=== PATIENT | female | born 1935 | race Caucasian/White ===

== ENCOUNTER 2023-01-11 13:13 | Inpatient (IN) | payer BC, MEDICARE ==
[2023-01-11] VITALS (15 sets, daily range): BP systolic 92–158; BP diastolic 53–88
[~2023-01-11] VITALS: Ht 172.7 cm; Wt 53.5 kg
[~2023-01-11 13:13] MED LIST: DONE5TAB34 PO; ESCI10TA PO; OLME20TA13 PO; PRAV40TA3 PO
--- NOTE | 2023-01-11 13:20 | NUR ---
CALLED [phone] STEPHAN
--- NOTE | 2023-01-11 13:24 | NUR ---
TO ER BED 8. [id number] FROM [facility] FOR CHOKING ON BURGER APPROXIMATELY 10 MINS GRINDER WATCH PARTS. PT WAS SATTING AT HIGH 70 LOW 80S ON ROOM AIR. NONREBREATHER 15L APPLIED BY EMS SATTING MID 90S. STRIDOR HEARD UPON AUSCULTATION. PT IS IN RESPIRATORY DISTRESS. ATTACHED TO MONITOR. DR AQUINO AT BEDSIDE.
--- NOTE | 2023-01-11 13:25 | NUR ---
CALLED DR. COTTRELL [phone] LEFT VM
--- NOTE | 2023-01-11 13:28 | NUR ---
DEYVI ADMIN. [phone] [facility]
[2023-01-11] MEDS ORDERED: ETOMIDATE 2 MG/ML VIAL IV ONE ×2 (13:30→20:25)
[2023-01-11] MEDS ORDERED: SUCCINYLCHOLINE CHLORIDE 20 MG/ML VIAL IV ONE ×2 (13:30→20:25)
[2023-01-11] MEDS ORDERED: IV NS 0.9% 1,000 ML IV ONE (13:30)
[2023-01-11] MEDS ORDERED: KETAMINE HCL(200MG/20ML) 10 MG/ML VIAL IV ONE (13:30)
--- NOTE | 2023-01-11 13:38 | NUR ---
INTUBATION STARTED AT 1334. INITIAL VITALS: HR 162; O2 97% ON 15L NR; RR 29; BP 173/79 20MG ETOMINDATE GIVEN AT 1334 100MG SUCCINYLCHOLINE GIVEN AT 1335 IN AT 1338 8.0; 21 AT THE LIP POST VITALS: HR 156; O2 98% MECH VENT; RR 24; BP 146/103
[2023-01-11] MEDS ORDERED: PROPOFOL 100 ML ONE (13:40)
--- NOTE | 2023-01-11 13:40 | NUR ---
VENT SETTINGS MODE; A/C VC FIO2; 100 TIDAL VOLUME: 475 RATE: 12 I:E 1:2 PEEP: 5 PMAX: 65
--- NOTE | 2023-01-11 13:47 | NUR ---
x ray at bedside
--- NOTE | 2023-01-11 13:54 | NUR ---
RUTH COLLECTED AND SENT
[2023-01-11] MEDS ORDERED: PIPERACILLIN /TAZOBACTAM 3.375 G in IV D5W 50 ML IV ONE (14:00)
[2023-01-11] MEDS ORDERED: PROPOFOL 100 ML IV PRN (14:00)
--- NOTE | 2023-01-11 14:00 | NUR ---
DR GARG AT BEDSIDE FOR EVAL
--- NOTE | 2023-01-11 14:10 | NUR ---
MOVE SHEET SUBMITTED.
[2023-01-11 14:11] LABS: BASOPHILS # (AUTO) 0.1 K/uL (0.0-0.2); BASOPHILS % (AUTO) 0.5 % (0.0-2.0); HEMATOCRIT 38 % (33-45); HEMOGLOBIN 12.6 g/dL (11.5-14.8); LYMPHOCYTES % (AUTO) 31.9 % (20.0-44.0); MEAN CORPUSCULAR HGB CONC 33 g/dl (31.0-36.0); MEAN CORPUSCULAR VOLUME 94 fL (82-100); MONOCYTES # (AUTO) 1.1 K/uL (0.1-1.30); NEUTROPHILS # (AUTO) 6.6 K/uL (1.8-8.9); NEUTROPHILS % (AUTO) 52.6 % (43.0-81.0); PLATELET COUNT (AUTO) 348 K/uL (150-450); RED BLOOD CELL COUNT(AUTO) 4.08 MIL/uL (4.0-5.2); WHITE BLOOD COUNT (AUTO) 12.6 K/uL (4.3-11.0)
[2023-01-11 14:25] LABS: ALANINE AMINOTRANSFERASE 25 U/L (12-78); ALBUMIN 3.7 g/dL (3.4-5.0); ALKALINE PHOSPHATASE 82 U/L (46-116); ASPARTATE AMINOTRANSFERASE 23 U/L (15-37); BILIRUBIN,DIRECT 0.1 mg/dL (0.0-0.2); BILIRUBIN,TOTAL 0.4 mg/dL (0.2-1.0); CARBON DIOXIDE 26 mmol/L (21-32); CHLORIDE 106 mmol/L (98-107); CREATININE 0.8 mg/dL (0.6-1.3); GLUCOSE 211 mg/dL (74-106); POTASSIUM 3.5 mmol/L (3.5-5.1); SODIUM SERUM 140 mmol/L (136-145); TOTAL PROTEIN, SERUM 7.1 g/dL (6.4-8.2); UREA NITROGEN, BLOOD 18 mg/dL (7-18)
--- NOTE | 2023-01-11 14:28 | NUR ---
[facility] CALLED [employer] PROFESSOR PAGED.
--- NOTE | 2023-01-11 14:30 | NUR ---
SURJIT (SON/POA) NOTIFIED OF HIS MOTHER'S CONDITON AND THAT SHE HAS BEEN INTUBATED.
--- NOTE | 2023-01-11 14:39 | NUR ---
GOT BED 252 ADMITTING INFORMED.
--- NOTE | 2023-01-11 14:59 | NUR ---
REPORT GIVEN TO JAIRO FOR GUILLAUME
--- NOTE | 2023-01-11 15:05 | NUR ---
16FR RAMRIEZ CATHETER IN PLACE.
--- NOTE | 2023-01-11 15:07 | NUR ---
ADMITTING IONA VIRK AT BEDSIDE FOR EVAL
--- NOTE | 2023-01-11 15:45 | NUR ---
RN NOTES RECEIVED PT IN ROOM 252 FROM ET, PT IS INTUBATED AND SEDATED, TOLERATING VENT SETTING WELL, ON DIPRIVAN AT 40 MCG/KG/MIN, ON TELE SR AND A.LAINE RVR AT TIMES , RAMIREZ DRANING TO GRAVITY, SMALL WOUNDS NOTED ALL OVER THE BODY, MD NOTIFIED , WOUND CONSULT ORDERED, IV SITE CDI, SR UP x3, CALL LIGHT WITHIN EASY REACH, BED LOCKED AND IN LOWEST POSITION, CONTINUE TO MONITOR
--- NOTE | 2023-01-11 15:48 | NUR ---
PT TRASNFERRED TO ICU WITH ACLS PROTOCOLS IN PLACE ACOMPANIED BY RT
--- NOTE | 2023-01-11 15:59 | NUR ---
RT NOTE PT TRANSFERRED FROM BED 8 ER TO ICU 252. VENT PLUGGED INTO RED OUTLET , ETT SECURED, ALARMS ARE ON AND AUDIBLE, AMBU-BAG BY BEDSIDE. PT HAS SAME VENT SETTINGS PRESCRIBED BY DOCTOR. PT SHOWING BILATERAL CHEST RISE. PT IS CURRENTLY STABLE WILL CONTINUE TO MONITOR FOR ANY CHANGES.
[2023-01-11] MEDS ORDERED: CEFEPIME 1 GM in IV D5W 50 ML IV SCH (16:00)
[2023-01-11] MEDS ORDERED: NOREPINEPHRINE 8 MG in IV NS 0.9% 250 ML IV PRN (16:00)
[2023-01-11] MEDS ORDERED: ONDANSETRON HCL/PF 4 MG/2 ML VIAL IVP PRN (16:00)
[2023-01-11 16:49] LABS: ABG BASE EXCESS -0.1 mmol/L; ABG OXYGEN SATURATION 99.6 % (92.0-98.5); ABG PCO2 30.1 mmHg (35.0-45.0); ABG PH 7.487 (7.350-7.450); ABG PO2 404.7 mmHg (75.0-100.0); AaDO2 278.2 mmHg; COHb 0.3 % (0.5-1.5); MetHb 0.4 % (0.0-1.5); O2Hb 98.9 % (94.0-97.0); PEEP,BG 5 cm H2O; SITE, ABG Right Radial; VT, ABG 475 mL
[2023-01-11] MEDS ORDERED: PERMETHRIN 5% CRM 60 GM TUBE TP ONE (17:00)
[2023-01-11] MEDS: PROPOFOL 100 ML IV PRN (17:06)
[2023-01-11] MEDS: ENOXAPARIN SODIUM 40 MG/0.4 ML DISP.SYRIN SQ SCH (17:10)
[2023-01-11] MEDS: METRONIDAZOLE 500MG/ NS 100ML 500 MG in PREMIX 1 EA IV SCH ×2 (17:11→23:03)
--- NOTE | 2023-01-11 17:23 | NUR ---
et tube adjusted and vent changes below per dr. cabezas: et tube pulled out 2 cm from 22 cm lipline to 20 cm lipline. tidal volume decreased from 475 ml to 400ml. fio2 decreased from 100% to 28% fio2. rn and charge nurse aware on changes made. Addendum: 01/11/23 at 1727 by ELLEN WOOD RT Amended: Links added.
--- NOTE | 2023-01-11 18:18 | NUR ---
RN NOTES NO DISTESS NOTED, WILL ENDORSE TO SUPERVISOR DRAWING NURSE FOR CONTINUITY OF CARE .
--- NOTE | 2023-01-11 20:11 | NUR ---
RN NOTE NGT INSERTED IN RIGHT NARE AT 60 CM. PLACEMENT CONFIRMED WITH AUSCULTATION AND WITH CIRCUS RIDER NORM. ORDER RECEIVED FROM RADHA LARSEN TO CHANGE DIET ORDER FROM NPO TO NPO EXCEPT MEDS.
--- NOTE | 2023-01-11 20:29 | NUR ---
PSYCHOLOGY CLINICIAN OPENING NOTE PT RECEIVED IN BED, SEDATED WITH PROPOFOL, PERRLA, MOVES EXTREMITIES TO LOCALIZED PAIN. PT WITH ETT SIZE 8, MARKED 20 CM AT THE LIP, AC 12, TV 400, FIO2 28%, PEEP 5 WITH CURRENT O2SAT OF 99%. NGT IN RIGHT NARE AT 60 CM; POSITIVE PLACEMENT CONFIRMED. PT ATTACHED TO BEDSIDE MONITOR, CURRENTLY ST WITH HR OF 156. RAMIREZ INTACT AND PATENT, DRAINING CLEAR AND YELLOW URINE. BED IN LOWEST POSITION, CALL LIGHT WITHIN REACH, SIDE RAILS UP X3. WILL CONTINUE TO MONITOR THROUGHOUT THE NIGHT.
[2023-01-11 20:33] LABS: BILIRUBIN,URINE NEGATIVE (NEGATIVE); COLOR,URINE YELLOW (YELLOW); LEUKOCYTE ESTERASE ,URINE NEGATIVE (NEGATIVE); NITRITE, URINE NEGATIVE (NEGATIVE); PROTEIN,URINE NEGATIVE (NEGATIVE); UGLUCOSE NEGATIVE (NEGATIVE); UROBILINOGEN,URINE 0.2 EU/dL (0.2)
[2023-01-11 20:45] LABS: BACTERIA,URINE None seen /HPF (None Seen); SQUAMOUS EPITHELIAL CELL,UR 0-2 /HPF (None Seen); WBC,URINE 0-2 /HPF (0-3)
[2023-01-11] MEDS: PIPERACILLIN /TAZOBACTAM 3.375 G in IV D5W 100 ML IV SCH (21:22)
[2023-01-11] MEDS ORDERED: ATORVASTATIN 10 MG TABLET PO SCH (22:00)
[2023-01-12] VITALS (36 sets, daily range): BP systolic 97–185; BP diastolic 43–99
[2023-01-12] MEDS: PROPOFOL 100 ML IV PRN ×2 (00:28→09:21)
[2023-01-12] MEDS: PIPERACILLIN /TAZOBACTAM 3.375 G in IV D5W 100 ML IV SCH ×3 (04:59→21:08)
[2023-01-12] MEDS: METRONIDAZOLE 500MG/ NS 100ML 500 MG in PREMIX 1 EA IV SCH (05:00)
[2023-01-12 05:28] LABS: ABG BASE EXCESS 0.2 mmol/L; ABG OXYGEN SATURATION 97.6 % (92.0-98.5); ABG PCO2 32.1 mmHg (35.0-45.0); ABG PH 7.474 (7.350-7.450); ABG PO2 100.4 mmHg (75.0-100.0); AaDO2 61.4 mmHg; COHb 0.4 % (0.5-1.5); MetHb 0.2 % (0.0-1.5); SITE, ABG Right Radial; VENT MODE, BG AC 12 400 28% +5
[2023-01-12 05:47] LABS: CALCIUM, SERUM 8.6 mg/dL (8.5-10.1); CREATININE 0.6 mg/dL (0.6-1.3); POTASSIUM 3.5 mmol/L (3.5-5.1)
[2023-01-12 05:47] LABS: BASOPHILS % (AUTO) 0.1 % (0.0-2.0); EOSINOPHILS % (AUTO) 0.7 % (0.0-6.0); HEMATOCRIT 37 % (33-45); HEMOGLOBIN 11.9 g/dL (11.5-14.8); LYMPHOCYTES % (AUTO) 6.8 % (20.0-44.0); MEAN CORPUSCULAR HGB CONC 32 g/dl (31.0-36.0); MEAN CORPUSCULAR VOLUME 95 fL (82-100); MONOCYTES # (AUTO) 1.2 K/uL (0.1-1.30); MONOCYTES % (AUTO) 8.3 % (2.0-12.0); NEUTROPHILS # (AUTO) 11.9 K/uL (1.8-8.9); NEUTROPHILS % (AUTO) 84.1 % (43.0-81.0); PLATELET COUNT (AUTO) 255 K/uL (150-450); RED BLOOD CELL COUNT(AUTO) 3.85 MIL/uL (4.0-5.2); WHITE BLOOD COUNT (AUTO) 14.1 K/uL (4.3-11.0)
[2023-01-12 05:51] LABS: BILIRUBIN,TOTAL 0.6 mg/dL (0.2-1.0); MAGNESIUM 2.4 mg/dL (1.8-2.4); PHOSPHORUS 4.3 mg/dL (2.5-4.9); TOTAL PROTEIN, SERUM 6.2 g/dL (6.4-8.2)
[2023-01-12 05:59] LABS: THYROID STIMULATING HORMONE 2.536 uIU/mL (0.358-3.74)
--- NOTE | 2023-01-12 06:35 | NUR ---
RANCH HAND SUPERVISOR CLOSING NOTE PT REMAINS IN BED, SEDATED; CONTINUES TO MOVE 4/4 EXTREMITIES TO LOCALIZED PAIN. CONTINUES ON SAME VENT SETTINGS; TOLERATED WELL WITH O2SAT RANGING FROM 99%-100% WITH NO S/S OF RESP DISTRESS, NO SOB, NON-LABORED AND EQUAL BREATHING. ATTACHED TO BEDSIDE MONITOR, MylaTACHY MOSTLY IN BEGINNING OF SHIFT WITH HR NOTED TO BE HIGH 160S. RAMIREZ INTACT AND PATENT, DRAINING CLEAR AND YELLOW URINE. BILATERAL SOFT WRIST RESTRAINTS REMAIN IN PLACE; NO SIGNS OF IMPAIRED SKIN OR CIRCULATION; PT PROVIDED WITH RELEASE OF RESTRAINTS AND HYGIENE. RAC 20G INTACT AND PATENT WITH PROPOFOL AT 25 MCG/KG/MIN, ZOSYN AT 25 ML/HR, AND NS TKO INFUSING. ALL DUE MEDS ADMINISTERED DURING THE NIGHT. BED IN LOWEST POSITION, CALL LIGHT WITHIN REACH, SIDE RAILS UP X3. WILL ENDORSE TO DAYSHIFT NURSE TO CONTINUE CARE.
--- NOTE | 2023-01-12 07:39 | NUR ---
RECIEVE PT ON VENTILATOR ,WITH AC RATE 12 TV 400 FIO2 28% PEEP 5 ,O2SAT 100% NO S/S OF RESP DISTRESS ,TEMP 99.7 IS ON PROPOFOL GTT AT 25 MCG FOR SEDATION MOVES EXTRIMITIES TO PAIN STIMULI HAS BILATERAL RESTRAINT IN PLACE FOR SAFETY PRECAUTION ,SR ON MONITOR RAMIREZ IN PLACE PT IS ON CONTACT ISOLATION
[2023-01-12] MEDS: PANTOPRAZOLE 40 MG VIAL IV SCH (08:46)
--- NOTE | 2023-01-12 08:47 | NUR ---
DR HILARIO WAS NOTIFIED OF LACTIC ACID=2.4, NO ORDER MADE.
[2023-01-12] MEDS: ESCITALOPRAM OXALATE (10 MG) 10 MG TABLET PO SCH (08:49)
--- NOTE | 2023-01-12 09:10 | NUR ---
WOUND CARE CONSULT: PT PRESENTS WITH SMALL RED SPOTS AND TINY SCABS ON BODY, PRESENT ON ADMISSION. PT WAS TREATED WITH PERMETHRIN PER NURSING STAFF. DISCUSSED SKIN PROTECTION WITH NURSING STAFF. MD IN AGREEMENT WITH PLAN OF CARE. PT IS ON [facility] LOW AIRLOSS BED.
[2023-01-12] MEDS ORDERED: Z GUARD REMEDY 4 OZ OINT TP PRN (09:30)
[2023-01-12 11:22] LABS: ABG BASE EXCESS -0.4 mmol/L; ABG OXYGEN SATURATION 98.2 % (92.0-98.5); ABG PCO2 32.2 mmHg (35.0-45.0); ABG PH 7.464 (7.350-7.450); ABG PO2 112.3 mmHg (75.0-100.0); AaDO2 49.3 mmHg; COHb 0.6 % (0.5-1.5); MetHb 0.2 % (0.0-1.5); O2Hb 97.4 % (94.0-97.0); SITE, ABG Right Radial; VENT MODE, BG cpap 15 +5 28%
[2023-01-12] MEDS ORDERED: ETOMIDATE 2 MG/ML VIAL IV ONE (11:24)
[2023-01-12] MEDS ORDERED: SUCCINYLCHOLINE CHLORIDE 20 MG/ML VIAL IV ONE (11:24)
--- NOTE | 2023-01-12 11:30 | NUR ---
pt was weaned off and extubated at 1130, on room air, no resp distress ,[id number] 98% at this time
--- NOTE | 2023-01-12 11:30 | NUR ---
RT PATIENT WEANED AND EXTUBATED PER DR LUZ ORDERS. PATIENT AWAKE, RESPONSIVE, ON ROOM AIR. NO SOB AT THIS TIME. Addendum: 01/12/23 at 1213 by ALBERTO WAITE RT Amended: Links added.
[2023-01-12] MEDS ORDERED: RISP0.2515 PO (12:19)
[2023-01-12] MEDS ORDERED: OXCA150T13 PO (12:19)
[2023-01-12] MEDS ORDERED: ATOR10TA PO (12:19)
[2023-01-12] MEDS ORDERED: LORA-259 PO (12:19)
[2023-01-12] MEDS ORDERED: LEVO50TA8 PO (12:19)
[2023-01-12] MEDS ORDERED: PANT20TA2 PO (12:19)
[2023-01-12] MEDS: IV NS 0.9% 1,000 ML IV SCH (12:55)
[2023-01-12] MEDS ORDERED: LORAZEPAM 0.5 MG TABLET PO PRN (13:30)
[2023-01-12] MEDS: OXCARBAZEPINE 150 MG TABLET PO SCH ×2 (16:19→21:08)
[2023-01-12] MEDS: risperiDONE 1 MG TABLET PO SCH (16:19)
[2023-01-12] MEDS: hydrALAZINE HCL IV 20 MG VIAL IV PRN ×2 (16:20→22:36)
[2023-01-12] MEDS: ENOXAPARIN SODIUM 40 MG/0.4 ML DISP.SYRIN SQ SCH (16:40)
--- NOTE | 2023-01-12 17:25 | NUR ---
PTS HEART RATE 160 170 ,A FIB ,12 LEAD EKG WAS ORDERED STAT ,AND RESPIRATORY THERAPIST WAS CALLED
--- NOTE | 2023-01-12 18:22 | NUR ---
12 LEAD EKG WAS DONE ,DR MURILLO WAS NOTIFIED OF RESULT ,ORDERED AMIODORANE 150MG BOLUS FOLLOWED BY GTT IS NOT UP FROM PHARMACY AT THIS TIME ,WILL BE STARTED SOON COMES FROM PHARMACY HR 105 A FIB AT THIS TIME
[2023-01-12] MEDS ORDERED: AMIODARONE 150 MG in IV D5W 100 ML IV ONE (18:30)
--- NOTE | 2023-01-12 18:42 | NUR ---
PT HAD ORDER FOR AMIODORANE BOLUS FOLLOW BY GTT WAS STARTED AT 184 ,AND AMIODORANE GTT 1MG/MINN FOR 6 HOURS WAS STARTED AT 185 ,NIGHT RN WAS ENDORCED AFTER 6 HOURS AMIODORANE GTT 0.5MG/MIN CONTINIUE FOR 18 HOURS PER [facility] SR 99 AT THIS TIME ON MONITOR
[2023-01-12] MEDS: AMIODARONE 450 MG in IV D5W 241 ML IV PRN (18:58)
--- NOTE | 2023-01-12 20:00 | NUR ---
Received patient awake oriented to name otherwise confused.DX:ASPIRATION PNA.Extubated this morning.With O2 2LNC saturating 95%-96%.Patient congested. Nasopharyngeal suction done by DANIELRT.Maintain HOB elevated. SR/ST 100'S with in and out AFIB.Amiodarone gtt infusing per protocol.R nare NGT positive placement/clamped.NPO except meds.FC to gravity.Patient with generalized skin rashes,SCABIES.Maintain aspiration,skin and contact isolation per protocol.Continue monitoring.
[2023-01-12] MEDS: ATORVASTATIN 10 MG TABLET PO SCH (21:23)
[2023-01-12] MEDS ORDERED: risperiDONE 1 MG TABLET PO SCH (22:00)
[2023-01-13] VITALS (38 sets, daily range): BP systolic 117–163; BP diastolic 49–95
[2023-01-13] MEDS: AMIODARONE 450 MG in IV D5W 241 ML IV PRN (03:29)
[2023-01-13] MEDS: PIPERACILLIN /TAZOBACTAM 3.375 G in IV D5W 100 ML IV SCH ×3 (05:00→21:10)
[2023-01-13] MEDS: IV NS 0.9% 1,000 ML IV SCH ×2 (05:00→22:25)
[2023-01-13 06:08] LABS: ABG OXYGEN SATURATION 97.8 % (92.0-98.5); ABG PCO2 28.6 mmHg (35.0-45.0); ABG PH 7.521 (7.350-7.450); ABG PO2 94.8 mmHg (75.0-100.0); AaDO2 99.9 mmHg; COHb 0.5 % (0.5-1.5); MetHb 0.2 % (0.0-1.5); O2Hb 97.1 % (94.0-97.0); SITE, ABG Right Femoral; VENT MODE, BG 3 LPM NC
--- NOTE | 2023-01-13 06:30 | NUR ---
Patient remains congested.Empty suctioned done NileRT obtained moderate amount yellow thick secretions.Oral care done.Turned and repositioned to comfort.All due medications administered.No distress noted.Kept comfortable.All iv's infusing well.Continue monitoring. No BM noted.
--- NOTE | 2023-01-13 07:00 | NUR ---
RN OPENING NOTES RECEIVED REPORT FROM [facility] JUSTINO CIFUENTES. PATIENT ON 4 LITERS NASAL CANULA OXYGEN SATURATION IN HIGH 90S. SINUS RYTHYM ON THE MONITOR AT THIS TIME. NGT ATTACHED AT 60 CM JORGE ALBERTO. NPO EXCEPT MEDS AT THIS TIME. RAMIREZ ATTACHED DRAINIGN OUTPUT. IV SITES ON LEFT AND RIGHT ANTECUBITAL BOTH 20 GAUGE AND INTACT, INFUSING FLUIDS ORDERED. SAFETY MEASURES IMPLEMENTED WILL CONTINUE PLAN OF CARE AND ANTICIPATE NEEDS.
[2023-01-13] MEDS: ESCITALOPRAM OXALATE (10 MG) 10 MG TABLET PO SCH (08:33)
[2023-01-13] MEDS: risperiDONE 1 MG TABLET PO SCH (08:34)
[2023-01-13] MEDS: PANTOPRAZOLE 40 MG VIAL IV SCH (08:34)
[2023-01-13] MEDS: OXCARBAZEPINE 150 MG TABLET PO SCH ×4 (08:34→21:12)
[2023-01-13] MEDS: risperiDONE 0.25 MG TABLET PO SCH ×4 (08:53→21:11)
--- NOTE | 2023-01-13 08:54 | NUR ---
NON ADMIN FOR 0900 MEDS. MEDICATIONS ALREADY ADMINISTERED THIS MORNING.
[2023-01-13] MEDS ORDERED: OXCARBAZEPINE 150 MG TABLET PO SCH (09:00)
[2023-01-13] MEDS ORDERED: LORAZEPAM 1 MG TABLET PO PRN (09:00)
[2023-01-13] MEDS ORDERED: PANTOPRAZOLE 40 MG/PACK PACK PO SCH (09:00)
[2023-01-13] MEDS ORDERED: LEVOTHYROXINE SODIUM 50 MCG TABLET PO SCH (09:00)
[2023-01-13 09:23] LABS: BASOPHILS % (AUTO) 0.2 % (0.0-2.0); HEMATOCRIT 34 % (33-45); HEMOGLOBIN 11.7 g/dL (11.5-14.8); LYMPHOCYTES # (AUTO) 0.8 K/uL (0.8-4.8); LYMPHOCYTES % (AUTO) 4.3 % (20.0-44.0); MEAN CORPUSCULAR HGB CONC 34 g/dl (31.0-36.0); MEAN CORPUSCULAR VOLUME 93 fL (82-100); MONOCYTES # (AUTO) 1.2 K/uL (0.1-1.30); NEUTROPHILS # (AUTO) 15.8 K/uL (1.8-8.9); NEUTROPHILS % (AUTO) 88.5 % (43.0-81.0); PLATELET COUNT (AUTO) 248 K/uL (150-450); WHITE BLOOD COUNT (AUTO) 17.8 K/uL (4.3-11.0)
[2023-01-13 09:39] LABS: ALANINE AMINOTRANSFERASE 17 U/L (12-78); ALBUMIN 2.8 g/dL (3.4-5.0); ALKALINE PHOSPHATASE 68 U/L (46-116); ASPARTATE AMINOTRANSFERASE 20 U/L (15-37); BILIRUBIN,TOTAL 0.7 mg/dL (0.2-1.0); CALCIUM, SERUM 8.6 mg/dL (8.5-10.1); CARBON DIOXIDE 25 mmol/L (21-32); CHLORIDE 103 mmol/L (98-107); CREATININE 0.5 mg/dL (0.6-1.3); GLUCOSE 168 mg/dL (74-106); POTASSIUM 3.1 mmol/L (3.5-5.1); SODIUM SERUM 137 mmol/L (136-145); TOTAL PROTEIN, SERUM 6.2 g/dL (6.4-8.2); UREA NITROGEN, BLOOD 18 mg/dL (7-18)
[2023-01-13] MEDS: diphenhydrAMINE HCL 50 MG/ML VIAL IV PRN ×2 (12:05→22:27)
[2023-01-13] MEDS: ACETYLCYSTEINE 10% SOLN 400 MG/4 ML VIAL NEB SCH ×4 (12:30→23:18)
[2023-01-13] MEDS ORDERED: POTASSIUM CHLORIDE 20 MEQ TAB.PRT.SR PO SCH (13:30)
[2023-01-13] MEDS: IPRATROPIUM NEB FS 0.5 MG/2.5 ML AMPUL.NEB NEB SCH ×3 (14:08→23:18)
[2023-01-13] MEDS: AMIODARONE HCL 200 MG TABLET PO SCH ×2 (15:19→21:11)
[2023-01-13] MEDS: ENOXAPARIN SODIUM 40 MG/0.4 ML DISP.SYRIN SQ SCH (16:26)
--- NOTE | 2023-01-13 17:06 | NUR ---
PATIENT SEEN ATTEMPTING TO GRASP NASOGASTRIC TUBE WITH LEFT ARM. PATIENT ALSO SCRATCHING CHEST WITH LEFT HAND. LEFT HAND PLACED IN MITTEN TO PREVENT MORE SCRATCHING AND TO PREVENT HER FROM GRASPING NASOGASTRIC TUBE. WILL CONTINUE TO ASSESS AND MAKE CHANGES NEEDED.
--- NOTE | 2023-01-13 19:06 | NUR ---
PATIENT ENDORSED TO NIGHTSHIFT JUSTINO CORONA FOR CONTINUATION OF CARE.
--- NOTE | 2023-01-13 20:00 | NUR ---
Received patient drowsy.Respiration even and unlabored.With O2 2LNC saturation 98% still congested.RT SERGIO here.SR'S.Hemodynamically stable.Patient remains NPO except meds with R nare NGT in place and clamped. FC to gravity.Turned and repositioned for comfort.Plan of care reinforced.
[2023-01-13] MEDS: ATORVASTATIN 10 MG TABLET PO SCH (21:12)
[2023-01-13] MEDS ORDERED: ATORVASTATIN 10 MG TABLET PO SCH (22:00)
[2023-01-14] VITALS (41 sets, daily range): BP systolic 89–157; BP diastolic 43–83
[2023-01-14 04:21] LABS: BASOPHILS % (AUTO) 0.1 % (0.0-2.0); HEMATOCRIT 30 % (33-45); HEMOGLOBIN 10.1 g/dL (11.5-14.8); LYMPHOCYTES # (AUTO) 0.7 K/uL (0.8-4.8); LYMPHOCYTES % (AUTO) 4.8 % (20.0-44.0); MEAN CORPUSCULAR HGB CONC 34 g/dl (31.0-36.0); MEAN CORPUSCULAR VOLUME 93 fL (82-100); MONOCYTES # (AUTO) 1.3 K/uL (0.1-1.30); NEUTROPHILS # (AUTO) 11.9 K/uL (1.8-8.9); NEUTROPHILS % (AUTO) 85.1 % (43.0-81.0); PLATELET COUNT (AUTO) 219 K/uL (150-450); RED BLOOD CELL COUNT(AUTO) 3.21 MIL/uL (4.0-5.2)
[2023-01-14 04:47] LABS: ALKALINE PHOSPHATASE 60 U/L (46-116); ASPARTATE AMINOTRANSFERASE 15 U/L (15-37); BILIRUBIN,TOTAL 0.7 mg/dL (0.2-1.0); CALCIUM, SERUM 8.3 mg/dL (8.5-10.1); CARBON DIOXIDE 26 mmol/L (21-32); CHLORIDE 103 mmol/L (98-107); CREATININE 0.5 mg/dL (0.6-1.3); GLUCOSE 124 mg/dL (74-106); POTASSIUM 3.2 mmol/L (3.5-5.1); SODIUM SERUM 137 mmol/L (136-145); UREA NITROGEN, BLOOD 24 mg/dL (7-18)
[2023-01-14 04:48] LABS: ALANINE AMINOTRANSFERASE 14 U/L (12-78); ALBUMIN 2.5 g/dL (3.4-5.0); TOTAL PROTEIN, SERUM 5.7 g/dL (6.4-8.2)
[2023-01-14] MEDS: PIPERACILLIN /TAZOBACTAM 3.375 G in IV D5W 100 ML IV SCH ×3 (04:55→19:42)
--- NOTE | 2023-01-14 05:21 | NUR ---
abg done RN notified with the result.
[2023-01-14] MEDS ORDERED: METOPROLOL TARTRATE INJ 5 MG/5 ML AMPUL IVP ONE (06:30)
--- NOTE | 2023-01-14 06:45 | NUR ---
Patient resting in no acute distress.AM care done.Turned and repostioned to comfort. Patient back to Afib with RVR 130'S-140'S.M.He ,MARKETING LIAISON notified with orders rceived and carried out.Metoprolol 5mg iv x1 dose administered.HR down to 70's.Continue to monitor.
--- NOTE | 2023-01-14 07:00 | NUR ---
RN NOTES RECEIVED PT ON BED, ON DRAWZY, DOES NOT FOLLOW COMMAND, ON 2L O2 N/C , O2 SAT WNL, CONGESTED, SUCTIONING DONE, ON TELE A.FIB HR IN 60'S, RAMIREZ DRAINING TO GRAVITY, NGT INTACT , IV SITES CDI, IVF AT 60CC/HR RUNNING , ON CONTACT ISOLATION , SR UP x3, CALL LIGHT WITHIN EASY REACH, BED LOCKED AND IN LOWEST POSITION, CONTINUE TO MONITOR.
[2023-01-14] MEDS ORDERED: LEVOTHYROXINE SODIUM 50 MCG TABLET PO SCH (07:30)
[2023-01-14] MEDS: POTASSIUM CL. PREMIX PERIPHER. 50 ML IV SCH ×6 (07:48→13:31)
[2023-01-14] MEDS: IPRATROPIUM NEB FS 0.5 MG/2.5 ML AMPUL.NEB NEB SCH ×4 (07:57→23:18)
[2023-01-14] MEDS: ACETYLCYSTEINE 10% SOLN 400 MG/4 ML VIAL NEB SCH ×3 (07:57→23:18)
[2023-01-14] MEDS ORDERED: POTASSIUM CHLORIDE 20 MEQ POWDER PACKET NG ONE (08:00)
[2023-01-14] MEDS ORDERED: POTASSIUM CL. PREMIX PERIPHER. 50 ML IV SCH (08:00)
[2023-01-14] MEDS: LEVOTHYROXINE SODIUM 50 MCG TABLET NG SCH (08:09)
[2023-01-14] MEDS: PANTOPRAZOLE 40 MG/PACK PACK NG SCH (08:10)
[2023-01-14] MEDS: AMIODARONE HCL 200 MG TABLET NG SCH ×2 (08:10→21:27)
[2023-01-14] MEDS: OXCARBAZEPINE 150 MG TABLET NG SCH ×4 (08:10→21:27)
[2023-01-14] MEDS: ESCITALOPRAM OXALATE (10 MG) 10 MG TABLET NG SCH (08:10)
[2023-01-14] MEDS: risperiDONE LIQUID 1 MG/ML ML NG SCH ×4 (08:44→21:27)
[2023-01-14] MEDS ORDERED: risperiDONE LIQUID 1 MG/ML ML NG SCH (09:00)
[2023-01-14] MEDS ORDERED: JEVITY 1.2 CAL 1,000 ML BOTTLE GT PRN ×2 (11:30)
[2023-01-14 12:47] LABS: ABG BASE EXCESS -0.8 mmol/L; ABG OXYGEN SATURATION 96.1 % (92.0-98.5); ABG PCO2 34.1 mmHg (35.0-45.0); ABG PH 7.444 (7.350-7.450); ABG PO2 81.7 mmHg (75.0-100.0); AaDO2 77.7 mmHg; COHb 0.2 % (0.5-1.5); MetHb 0.3 % (0.0-1.5); O2Hb 95.6 % (94.0-97.0); SITE, ABG Right Radial; VENT MODE, BG Nasal Cannula
--- NOTE | 2023-01-14 13:00 | NUR ---
RN NOTES TOLERATING TF AT 20CC/HR WELL, NO RESIDUAL NOTED, CONTINUE TO MONITOR .
[2023-01-14] MEDS: IV NS 0.9% 1,000 ML IV SCH (13:31)
[2023-01-14] MEDS: ENOXAPARIN SODIUM 40 MG/0.4 ML DISP.SYRIN SQ SCH (16:16)
--- NOTE | 2023-01-14 18:11 | NUR ---
RN NOTES PT REMAINS ON 2L O2 N/C , VERY CONGESTED, ORAL AND NT SUCTIONING DONE FREQUENTLY PER MD ORDER . O2 SAT WNL, ON TELE SR , TF AT 20CC/HR RUNNING , IV SITES CDI, SR UP x3, CALL LIGHT WITHIN EASY REACH, BED LOCKED AND IN LOWEST POSITION, WILL ENDORSE TO COLLEGE DEAN NURSE FOR CONTINUITY OF CARE
[2023-01-14] MEDS: FUROSEMIDE 20 MG/2 ML VIAL IV SCH (19:42)
--- NOTE | 2023-01-14 20:30 | NUR ---
ICU/TRANSPORT RN LASIX 20MG IVP GIVEN X1 NOW BY FILM REPRODUCER NURSE. WILL CONTINUE TO MONITOR THIS PT'S BP AND SATURATION.
[2023-01-14] MEDS: ATORVASTATIN 10 MG TABLET NG SCH (21:27)
--- NOTE | 2023-01-14 23:00 | NUR ---
ICU/ENDLESS STEAMER TENDER PT HAD TO HAVE PERIPHERAL DRAW OF POTASSIUM LAB DUE TO THE LINE DRAW CLOTTED. AWAIT FOR RESULTS.
[2023-01-15] VITALS (29 sets, daily range): BP systolic 84–141; BP diastolic 35–76
--- NOTE | 2023-01-15 00:30 | NUR ---
ICU/ENTER[employer] SOFTWARE DEVELOPER CALLED THE CUSTODIAN ATHLETIC EQUIPMENT ABOUT PTS HEART RATE OF 130'S WHICH IS IN AND OUT OF AFIB. PT WAS ALREADY GIVEN PO AMIODARONE 200MG PO. CUSTODIAN ATHLETIC EQUIPMENT SAID NO NEW ORDERS.
[2023-01-15] MEDS ORDERED: POTASSIUM CHLORIDE 20 MEQ POWDER PACKET GT ONE ×3 (01:00→03:30)
--- NOTE | 2023-01-15 01:04 | NUR ---
ICU/PIZZA CHEF POTASSIUM LEVEL IS 3.0, CARDIOLOGY SAID TO KEEP GREATER THAN 4.0. NOTIFED THE RECYCLING CREW SUPERVISOR HOMA FOR ORDERS SAID TO GIVE 60MEQ PO NOW. THIS WAS DONE. ORDERS CARRIED OUT
[2023-01-15] MEDS: PIPERACILLIN /TAZOBACTAM 3.375 G in IV D5W 100 ML IV SCH ×3 (04:11→21:43)
[2023-01-15] MEDS: IV NS 0.9% 1,000 ML IV SCH ×2 (04:34→23:34)
[2023-01-15 05:27] LABS: BASOPHILS % (AUTO) 0.2 % (0.0-2.0); EOSINOPHILS % (AUTO) 1.5 % (0.0-6.0); HEMATOCRIT 28 % (33-45); HEMOGLOBIN 9.3 g/dL (11.5-14.8); LYMPHOCYTES # (AUTO) 0.7 K/uL (0.8-4.8); LYMPHOCYTES % (AUTO) 7.1 % (20.0-44.0); MEAN CORPUSCULAR HGB CONC 33 g/dl (31.0-36.0); MEAN CORPUSCULAR VOLUME 93 fL (82-100); MONOCYTES % (AUTO) 9.8 % (2.0-12.0); NEUTROPHILS # (AUTO) 8.2 K/uL (1.8-8.9); NEUTROPHILS % (AUTO) 81.4 % (43.0-81.0); PLATELET COUNT (AUTO) 220 K/uL (150-450)
[2023-01-15 05:37] LABS: CALCIUM, SERUM 7.5 mg/dL (8.5-10.1); CREATININE 0.6 mg/dL (0.6-1.3); POTASSIUM 3.6 mmol/L (3.5-5.1)
[2023-01-15 05:44] LABS: BILIRUBIN,TOTAL 0.5 mg/dL (0.2-1.0); TOTAL PROTEIN, SERUM 5.1 g/dL (6.4-8.2)
[2023-01-15] MEDS ORDERED: POTASSIUM CHLORIDE 20 MEQ TAB.PRT.SR PO ONE (06:00)
--- NOTE | 2023-01-15 07:00 | NUR ---
RN NOTES RECEIVED PT ON BED, DRAWZY, DOES NOT FOLLOW COMMAND, ON 2L O2 N/C , O2 SAT WNL, CONGESTED, SUCTIONING DONE, ON TELE SR ,HR IN 60'S, RAMIREZ DRAINING TO GRAVITY, NGT FEEDING AT 20CC/HR RUNING, IV SITES CDI, IVF AT 60CC/HR RUNNING , ON CONTACT ISOLATION , SR UP x3, CALL LIGHT WITHIN EASY REACH, BED LOCKED AND IN LOWEST POSITION, CONTINUE TO MONITOR.
[2023-01-15] MEDS: IPRATROPIUM NEB FS 0.5 MG/2.5 ML AMPUL.NEB NEB SCH ×2 (07:35→20:00)
[2023-01-15] MEDS: ACETYLCYSTEINE 10% SOLN 400 MG/4 ML VIAL NEB SCH ×3 (07:35→23:35)
[2023-01-15] MEDS: Magnesium 1GM/D5W 100ML PREMIX 100 ML IV SCH ×3 (07:46→10:04)
[2023-01-15] MEDS: LEVOTHYROXINE SODIUM 50 MCG TABLET NG SCH (07:46)
[2023-01-15] MEDS: POTASSIUM CL. PREMIX PERIPHER. 50 ML IV SCH ×2 (07:46→09:02)
[2023-01-15] MEDS: AMIODARONE HCL 200 MG TABLET NG SCH ×2 (08:12→21:48)
[2023-01-15] MEDS: ESCITALOPRAM OXALATE (10 MG) 10 MG TABLET NG SCH (08:13)
[2023-01-15] MEDS: PANTOPRAZOLE 40 MG/PACK PACK NG SCH (08:13)
[2023-01-15] MEDS: OXCARBAZEPINE 150 MG TABLET NG SCH ×4 (08:13→21:45)
[2023-01-15] MEDS: FUROSEMIDE 20 MG/2 ML VIAL IV SCH ×2 (08:14→16:15)
[2023-01-15] MEDS: risperiDONE LIQUID 1 MG/ML ML NG SCH ×4 (08:15→21:50)
[2023-01-15] MEDS ORDERED: Magnesium 1GM/D5W 100ML PREMIX 100 ML IV SCH (10:30)
--- NOTE | 2023-01-15 13:06 | NUR ---
RN NOTES PT TRANSFER TO [facility] ROOM 104 VIA ACLS PROTOCAL WITH ALL HER BELONGINGS . REPORT GIVEN O SOPHY BADILLO FOR CONTINUITY OF CARE
--- NOTE | 2023-01-15 13:08 | NUR ---
RN NOTE RECEIVED PATIENT FROM ICU , PATIENT IS SLEEPING , ON O2 2L VIA N/C , BREATHING NON LABORED HAS NG TUBE IN PLACE , JEVITY AT 20 ML/HR TOLERATING WELL . PATIENT HAS BILATERAL HANDS SOFT RESTRAINED DUE TO TRYING TO PULL OUT THE NG TUBE . HAS IV ACCESS ON RITA ML 18 G , LAC 20 G , NS RUNNING VIA ML AT 60 ML /HR , ZOSYN AT 25 ML/HR AT THE LAC 20 G, RT AT BED SIDE DID DEEP SUCTIONING , RAMIREZ CATH IN PLACE DRANING CLEAR YELLOW URINE WILL CONTINUE TO MONITOR
[2023-01-15] MEDS: JEVITY 1.2 CAL 1,000 ML BOTTLE GT PRN (14:03)
[2023-01-15] MEDS: ENOXAPARIN SODIUM 40 MG/0.4 ML DISP.SYRIN SQ SCH (16:19)
--- NOTE | 2023-01-15 18:48 | NUR ---
RN NOTE PATIENT RESTING IN BED , ON O2 2L VIA N/C , BREATHING NON LABORED HAS NG TUBE IN PLACE , JEVITY AT 20 ML/HR RUNNING , TOLERATING WELL . PATIENT HAS BILATERAL HANDS SOFT RESTRAINED DUE TO TRYING TO PULL OUT THE NG TUBE . HAS IV ACCESS ON RITA ML 18 G , LAC 20 G , NS RUNNING VIA ML AT 60 ML /HR , ZOSYN AT 25 ML/HR AT THE LAC 20 G, RT AT BED SIDE DID DEEP SUCTIONING , RAMIREZ CATH IN PLACE DRANING CLEAR YELLOW URINE WILL ENDORSE YACHT HAND NURSE TO FALLOW POC
--- NOTE | 2023-01-15 19:30 | NUR ---
[facility] RN OPENING NOTE RECEIVED PT IN BED, ASLEEP. PT SHOWING NO S/SX OF ACUTE RESPI DISTRESS AT THIS TIME. NO SOB, BREATHING IS EVEN AND UNLABORED. ON NC @ 2L, TOLERATING WELL, SATING @ 99%. LINUX SYSTEM ENGINEER SHOWS SR, WITH HR IN THE 90s. IV ACCESS NOTED IN RITA ML RUNNING NS @ 60 CC/HR AND LAC #20G. BOTH PATENT, INTACT AND FLUSHING WELL. NGT REINSERTED. AWAITING FOR XRAY RESULT FOR CONFIRMATION OF PROPER PLACEMENT. SOFT WRIST RESTRAINTS IN PLACE ON BILATERAL ARMS WITH MITTENS. SKIN AND CIRCULATION WNL. FC NOTED DRAINING YELLOW URINE BY GRAVITY. ALL SAFETY MEASURES MAINTAINED: BED LOCKED IN LOW POSITION, BED ALARM ON. CALL LIGHT WITHIN REACH. SR UP X 3. HOB ELEVATED. WILL CONTINUE TO MONITOR PT.
--- NOTE | 2023-01-15 21:00 | NUR ---
RN NOTE NGT FEEDING RESUMED.
[2023-01-15] MEDS: ATORVASTATIN 10 MG TABLET NG SCH (21:45)
[2023-01-16] VITALS: BP 101/46
[2023-01-16] MEDS ORDERED: METOPROLOL TARTRATE INJ 5 MG/5 ML AMPUL IVP ONE
--- NOTE | 2023-01-16 00:10 | NUR ---
RN NOTE MD NOTIFIED REGARDING PT'S HIGH HR IN THE 140s FOR AN HR. MD ORDERED METOPROLOL 1X BUT AFTER FINDING OUT BP IS 103/53 PRIOR TO GIVING THE MED, MD ORDERED TO HOLD DOSE INSTEAD. WILL CONTINUE TO MONITOR PT.
[2023-01-16] MEDS: IPRATROPIUM NEB FS 0.5 MG/2.5 ML AMPUL.NEB NEB SCH ×4 (01:03→19:22)
[2023-01-16 04:00] VITALS: BP 113/64
[2023-01-16] MEDS: PIPERACILLIN /TAZOBACTAM 3.375 G in IV D5W 100 ML IV SCH ×3 (05:28→22:03)
--- NOTE | 2023-01-16 06:23 | NUR ---
[facility] RN CLOSING NOTE PT REMAINS ST, HR RANGES BETWEEN 120-140s. MD AWARE. ALL DUE MEDS GIVEN. NEEDS MET. WILL ENDORSE TO AM SHIFT NURSE FOR GUILLAUME.
[2023-01-16 06:40] LABS: ABG BASE EXCESS 3.1 mmol/L; ABG PCO2 33.6 mmHg (35.0-45.0); ABG PH 7.505 (7.350-7.450); ABG PO2 88.4 mmHg (75.0-100.0); AaDO2 71.6 mmHg; COHb 0.3 % (0.5-1.5); MetHb 0.3 % (0.0-1.5); O2Hb 96.4 % (94.0-97.0); SITE, ABG Right Radial; VENT MODE, BG 2L NC
[2023-01-16 07:18] LABS: BASOPHILS % (AUTO) 0.4 % (0.0-2.0); EOSINOPHILS % (AUTO) 5.7 % (0.0-6.0); HEMATOCRIT 31 % (33-45); HEMOGLOBIN 10.3 g/dL (11.5-14.8); LYMPHOCYTES # (AUTO) 1.1 K/uL (0.8-4.8); MEAN CORPUSCULAR HGB CONC 33 g/dl (31.0-36.0); MEAN CORPUSCULAR VOLUME 93 fL (82-100); MONOCYTES # (AUTO) 0.9 K/uL (0.1-1.30); MONOCYTES % (AUTO) 11.5 % (2.0-12.0); NEUTROPHILS # (AUTO) 5.7 K/uL (1.8-8.9); NEUTROPHILS % (AUTO) 69.4 % (43.0-81.0); PLATELET COUNT (AUTO) 276 K/uL (150-450); RED BLOOD CELL COUNT(AUTO) 3.34 MIL/uL (4.0-5.2); WHITE BLOOD COUNT (AUTO) 8.2 K/uL (4.3-11.0)
--- NOTE | 2023-01-16 07:30 | NUR ---
[facility] RN AM NOTE RECEIVED PT IN BED, ASLEEP. PT SHOWING NO S/SX OF ACUTE RESPI DISTRESS AT THIS TIME. NO SOB, BREATHING IS EVEN AND UNLABORED. ON NC @ 2L, O2 SAT AT 99%, ST HR 119 ON MONITOR. NO SIGNS OF PAIN. RITA MIDLINE WITH NS AT 60 ML/HR INFUSING WELL. SITE CLEAR. LEFT AC IV ACCESS, LEAKING, WILL REMOVE. WILL START ANOTHER LINE IN A WHILE. SOFT WRIST RESTRAINTS IN PLACE, BILATERAL ARMS WITH MITTENS, RELEASED AND CHECKED FOR CIRCULATION. THEN Q [address]RS[address] [facility] NGT IN PLACE, CHECKED FOR PLACEMENT, 10 ML RESIDUAL. RAMIRZE CATH IN PLACE, DRAINING YELLOW URINE BY GRAVITY. ADEQUATE AMOUNT. WILL TURN AND ALL SAFETY MEASURES MAINTAINED: BED LOCKED IN LOW POSITION, BED ALARM ON. CALL LIGHT WITHIN REACH. SR UP X 3. HOB ELEVATED. WILL CONTINUE TO MONITOR PT.
[2023-01-16] MEDS: ACETYLCYSTEINE 10% SOLN 400 MG/4 ML VIAL NEB SCH ×2 (07:36→15:30)
[2023-01-16 07:54] LABS: ALANINE AMINOTRANSFERASE 10 U/L (12-78); ALKALINE PHOSPHATASE 58 U/L (46-116); ASPARTATE AMINOTRANSFERASE 11 U/L (15-37); BILIRUBIN,TOTAL 0.4 mg/dL (0.2-1.0); CALCIUM, SERUM 8.2 mg/dL (8.5-10.1); CARBON DIOXIDE 28 mmol/L (21-32); CHLORIDE 104 mmol/L (98-107); CREATININE 0.7 mg/dL (0.6-1.3); GLUCOSE 115 mg/dL (74-106); MAGNESIUM 2.4 mg/dL (1.8-2.4); POTASSIUM 3.4 mmol/L (3.5-5.1); SODIUM SERUM 136 mmol/L (136-145); TOTAL PROTEIN, SERUM 5.5 g/dL (6.4-8.2); UREA NITROGEN, BLOOD 22 mg/dL (7-18)
[2023-01-16 08:00] VITALS: BP 108/76
[2023-01-16] MEDS: LEVOTHYROXINE SODIUM 50 MCG TABLET NG SCH (08:16)
[2023-01-16] MEDS: FUROSEMIDE 20 MG/2 ML VIAL IV SCH ×2 (09:20→17:34)
[2023-01-16] MEDS: ESCITALOPRAM OXALATE (10 MG) 10 MG TABLET NG SCH (09:23)
[2023-01-16] MEDS: AMIODARONE HCL 200 MG TABLET NG SCH (09:23)
[2023-01-16] MEDS: OXCARBAZEPINE 150 MG TABLET NG SCH ×4 (09:23→22:04)
[2023-01-16] MEDS: POTASSIUM CL. PREMIX PERIPHER. 50 ML IV SCH ×4 (09:27→12:31)
[2023-01-16] MEDS: risperiDONE LIQUID 1 MG/ML ML NG SCH ×4 (09:27→22:03)
[2023-01-16] MEDS: PANTOPRAZOLE 40 MG/PACK PACK NG SCH (09:27)
--- NOTE | 2023-01-16 09:30 | NUR ---
RN NOTES DUE MEDS GIVEN
[2023-01-16] MEDS ORDERED: IV NS 0.9% 250 ML IV PRN (10:30)
[2023-01-16 12:00] VITALS: BP 113/84
[2023-01-16] MEDS ORDERED: AMIODARONE 150 MG in IV D5W 100 ML IV ONE (13:30)
[2023-01-16] MEDS: IV NS 0.9% 1,000 ML IV SCH (14:18)
--- NOTE | 2023-01-16 14:55 | NUR ---
RN NOTES PATIENT UNCONTROLLED AFIB DR. MURILLO ORDERED TO START AMIODARONE DRIP
[2023-01-16] MEDS: AMIODARONE 450 MG in IV D5W 241 ML IV PRN ×2 (15:04→21:07)
[2023-01-16 16:00] VITALS: BP 111/79
--- NOTE | 2023-01-16 16:14 | NUR ---
RN NOTES DUE MEDS GIVEN
--- NOTE | 2023-01-16 16:43 | NUR ---
NOTES PATIENT PULLED OUT NGT. REPLACED FOR CXR STAT
[2023-01-16] MEDS: ENOXAPARIN SODIUM 40 MG/0.4 ML DISP.SYRIN SQ SCH (17:35)
--- NOTE | 2023-01-16 18:37 | NUR ---
RN NOTES ALL NEEDS MET PM CARE DONE EARLIER. TURNED AND REPOSITIONED Q 2 HOURS RESTRAINT RELEASED AND CHECK Q 2 HOURS WILL ENDORSE TO NEXT SHIFT FOR GUILLAUME.
--- NOTE | 2023-01-16 19:30 | NUR ---
RN NOTE REPORT RECEIVED FROM JENNY BADILLO, PT IN BED, AAO X 1, SATURATION AT 95% ON 2L VIA NC, AFIB ON THE MONITOR, HR IS 133. IV LINE AT LWRIST 22G, AND RITA MIDLINE PATENT AND FLUSHING WELL, AMIODARONE DRIP INFUSING AT 1MG/MIN. NG TUBE 55CM L NARE, POSITIVE PLACEMENT NOTED, NO RESIDUAL WITH JEVITY REGULATED AT 20 ML/HR WITH A GOAL OF 70/HR. RAMIREZ CATH DRAINING TO A CLEAR, YELLOW OUTPUT. SOFT WRIST AND MITTENS IN PLACE AT B HANDS/WRISTS, SKIN AND CIRCULATION CHECKED AND ARE WNL. SAFETY MEASURES IN PLACE, BED IS LOCKED AND AT LOWEST POSITION, CALL LIGHT WITHIN REACH OF PATIENT. WILL CONT TO MONITOR AND REASSESS.
[2023-01-16 20:00] VITALS: BP 135/65
[2023-01-16] MEDS: ATORVASTATIN 10 MG TABLET NG SCH (22:04)
[2023-01-17] VITALS: BP 111/57
[2023-01-17] MEDS: ACETYLCYSTEINE 10% SOLN 400 MG/4 ML VIAL NEB SCH ×4 (00:28→23:16)
[2023-01-17] MEDS: IPRATROPIUM NEB FS 0.5 MG/2.5 ML AMPUL.NEB NEB SCH ×4 (01:53→19:45)
--- NOTE | 2023-01-17 02:50 | NUR ---
RN NOTE PT CONVERTED TO SR WITH HR AT 65-67 AT 0247. MADE AWARE, PT FF UP WITH CARDIO IN AM
[2023-01-17 04:07] VITALS: BP 99/40
[2023-01-17] MEDS: PIPERACILLIN /TAZOBACTAM 3.375 G in IV D5W 100 ML IV SCH ×3 (04:41→21:07)
[2023-01-17 05:34] LABS: ABG BASE EXCESS 1.5 mmol/L; ABG OXYGEN SATURATION 98.1 % (92.0-98.5); ABG PCO2 34.3 mmHg (35.0-45.0); ABG PH 7.476 (7.350-7.450); ABG PO2 124.6 mmHg (75.0-100.0); AaDO2 63.4 mmHg; MetHb 0.1 % (0.0-1.5); SITE, ABG Right Radial; VENT MODE, BG 3L NC
--- NOTE | 2023-01-17 05:51 | NUR ---
ABG DONE. RESULTS GIVEN TO STACY BADILLO. TITRATED 02 TO 1LNC. NT SUCTION DONE.
[2023-01-17 06:43] LABS: BASOPHILS % (AUTO) 0.4 % (0.0-2.0); EOSINOPHILS % (AUTO) 9.1 % (0.0-6.0); HEMATOCRIT 30 % (33-45); HEMOGLOBIN 9.9 g/dL (11.5-14.8); LYMPHOCYTES # (AUTO) 1.3 K/uL (0.8-4.8); LYMPHOCYTES % (AUTO) 13.1 % (20.0-44.0); MEAN CORPUSCULAR HGB CONC 33 g/dl (31.0-36.0); MEAN CORPUSCULAR VOLUME 93 fL (82-100); MONOCYTES # (AUTO) 1.2 K/uL (0.1-1.30); MONOCYTES % (AUTO) 12.1 % (2.0-12.0); NEUTROPHILS # (AUTO) 6.4 K/uL (1.8-8.9); NEUTROPHILS % (AUTO) 65.3 % (43.0-81.0); PLATELET COUNT (AUTO) 289 K/uL (150-450); WHITE BLOOD COUNT (AUTO) 9.7 K/uL (4.3-11.0)
[2023-01-17 07:35] LABS: ALBUMIN 1.9 g/dL (3.4-5.0); BILIRUBIN,TOTAL 0.3 mg/dL (0.2-1.0); CALCIUM, SERUM 8.4 mg/dL (8.5-10.1); CREATININE 0.6 mg/dL (0.6-1.3); POTASSIUM 3.7 mmol/L (3.5-5.1); TOTAL PROTEIN, SERUM 5.2 g/dL (6.4-8.2)
--- NOTE | 2023-01-17 07:57 | NUR ---
elvis rn note patient in bed , all needs attended, on 1l nc no sob noted, on tele monitor sr hr 70 on amiodarone drip at this time spoke with dr yates lens mold setter reported that drip will be completed at 3 pm , stated will change to po . on n g rube as ordered , on ivf as ordered, bed in lowest and locked position , will cont to monitor, keep hob elevated as tolerated will cont to monitor Addendum: 01/17/23 at 1140 by SLIM WEBER RN [id number] CHECKED PLACEMENT FOR N G TUBE AND VERIFIED BY AUSCULTATION OF AIR ALSO NOTED LT HAND IS SWOLLEN KEEP ELEVATE ON PILLOW TOLERATED
--- NOTE | 2023-01-17 07:57 | NUR ---
elvis rn note \ patient in bed awake with confusion , with soft restrain at this time for safety and prevent to remove all lines, also note lt hand is swollen , keep elevated on pillow as tolerated , will cont to monitor closely
[2023-01-17 08:00] VITALS: BP 108/40
[2023-01-17] MEDS ORDERED: AMIODARONE HCL 200 MG TABLET PO SCH (09:00)
[2023-01-17] MEDS: PANTOPRAZOLE 40 MG/PACK PACK NG SCH (09:23)
[2023-01-17] MEDS: ESCITALOPRAM OXALATE (10 MG) 10 MG TABLET NG SCH (09:23)
[2023-01-17] MEDS: OXCARBAZEPINE 150 MG TABLET NG SCH ×4 (09:23→21:07)
[2023-01-17] MEDS: FUROSEMIDE 20 MG/2 ML VIAL IV SCH ×2 (09:25→16:27)
[2023-01-17] MEDS: LEVOTHYROXINE SODIUM 50 MCG TABLET NG SCH (09:25)
--- NOTE | 2023-01-17 09:30 | NUR ---
PARTS ROOM ASSOCIATE NOTE DR CAMILO FLEET COORDINATOR AT BEDSIDE ORDERED TO STOP YARITZA GARCIA, WILL START PO ALSO DR HOU SEEN PATIENT AWARE THAT CHEST CONGESTION OK AWARE ON IVF STILL OK ON IVF WILL F\U Addendum: 01/17/23 at 1147 by SLIM WEBER RN 1000 AMIODARONE GIVEN VIA N G TUBE
[2023-01-17] MEDS: risperiDONE LIQUID 1 MG/ML ML NG SCH ×4 (09:32→21:07)
[2023-01-17] MEDS: IV NS 0.9% 1,000 ML IV SCH (09:44)
--- NOTE | 2023-01-17 12:00 | NUR ---
telesales representative note rounds made. keep clean dry , turn reposited call light within reach
[2023-01-17 12:29] VITALS: BP 130/60
--- NOTE | 2023-01-17 14:00 | NUR ---
telephonic nurse note daughter at bedside and rt at bedside on breathing tx as ordered ,soft restrain is removed at this time will monitor closely
[2023-01-17] MEDS: JEVITY 1.2 CAL 1,000 ML BOTTLE GT PRN (15:59)
[2023-01-17 16:00] VITALS: BP 124/58
[2023-01-17] MEDS: ENOXAPARIN SODIUM 40 MG/0.4 ML DISP.SYRIN SQ SCH (16:28)
--- NOTE | 2023-01-17 17:00 | NUR ---
elvis rn note patient pulled n gtube unable to reinsert n gtube 2 nurses trying , called to dr amaya left a message awaiting for return call call but pass swallow eval at beside by nurse
[2023-01-17] MEDS: LORAZEPAM 1 MG TABLET NG PRN (17:08)
--- NOTE | 2023-01-17 17:13 | NUR ---
elvis coles note feel anxiety bp 124/58 ativan 0.5 mg po given saturation 9% Addendum: 01/17/23 at 1856 by SLIM WEBER RN SATURATION 98%
--- NOTE | 2023-01-17 17:56 | NUR ---
elvis rn note called to dr yates cost estimator notified that now on tele monitor afib with rvr hr 140-146 ordered digoxin 0.5 mg load diose and start digoxin 0.125 mg iv daily, order carried out
[2023-01-17] MEDS ORDERED: DIGOXIN INJ 0.5 MG/2 ML AMPUL IV ONE (18:00)
--- NOTE | 2023-01-17 18:12 | NUR ---
elvis rn note dr yates ordered ekg reported result and clarified digoxin 0.125 mg iv daily start tomorrow
--- NOTE | 2023-01-17 18:33 | NUR ---
[facility] RN NOTE DIGOXIN IVP GIVEN DOSE ORDERED BP 110/68 HR 140 WILL CONT TO MONITOR ,BED IN LOWEST AND LOCKED POSITION , SAFETY MEASURE PROVIDED ,ON 1L NC NO SOB NOTED AT THIS TIME,DR VERDUGO AWARE THAT PATIENT PASS SWALLOW EVAL AT BEDSIDE BY NURSE OK AND PATIENT [id number] N GTUBE , NO NEW ORDER GIVEN AT THIS TIME, SWALLOW EVAL BY ST TOMORROW, WILL CONT TO MONITOR
--- NOTE | 2023-01-17 18:38 | NUR ---
[place] RN NOTE ON TELE MONITOR SR HR 90 AT THIS TIME ,WILL CONT TO MONITOR CLOSELY
--- NOTE | 2023-01-17 19:15 | NUR ---
RN OPENING NOTES PATIENT RECEIVED IN BED, AWAKE, A/O X 1. ON NASAL CANULA @ 1LPM SATING AT 95%. RESPIRATORY EVEN AND UNLABORED, NO SOB NOTED, NO S/S DISTRESS, AFEBRILE, NO S/S OF DISTRESS NOTED. NOTED WITH RITA MIDLINE, FLUSHED WITH NS, NO S/S OF INFILTRATION NOTED. RUNNING WITH NS @60 ML/HR. RAMIREZ CATHETER PATENT INTACT DRAINING WITH CLEAR YELLOW URINE OUTPUT. ALL SAFETY PRECAUTION PROVIDED. BED IN LOWEST POSITION, LOCKED. BED ALARM ARMED. CALL LIGHT WITHIN REACH, SIDE RAILS UP X3. WILL CONTINUE TO MONITOR.
[2023-01-17] MEDS ORDERED: AMIODARONE HCL 200 MG TABLET NG SCH (21:00)
[2023-01-17] MEDS: ATORVASTATIN 10 MG TABLET NG SCH (21:06)
[2023-01-17 21:37] VITALS: BP 142/54
--- NOTE | 2023-01-17 22:30 | NUR ---
RN NOTES PATIENT NOTED WITH SINUS TACH WITH PAC, ON AND OFF AFIB HR- FROM 120'S TO 140'S, DIPTI SNYDER NOTIFIED WITH NEW ORDER MAY GIVE DIGOXIN 0.126MG IV, 6 HRS FROM LOADING DOSE @ 1823, NEXT GIGXIN AT 0030. NOTED AND CARRIED OUT.
--- NOTE | 2023-01-17 23:37 | NUR ---
SCANNED MUCOMYST BUT WILL ADMIN W/ Q6 NEB TX TO AVOID POSSIBLE BRONCHOSPASM.
[2023-01-18] VITALS (35 sets, daily range): BP systolic 92–175; BP diastolic 38–120
[2023-01-18] MEDS ORDERED: DIGOXIN INJ 0.5 MG/2 ML AMPUL IV ONE (00:30)
[2023-01-18] MEDS: IPRATROPIUM NEB FS 0.5 MG/2.5 ML AMPUL.NEB NEB SCH ×4 (02:34→20:17)
[2023-01-18] MEDS: IV NS 0.9% 1,000 ML IV SCH ×2 (03:21→19:18)
--- NOTE | 2023-01-18 03:59 | NUR ---
JUSTINO NOTES: RECEIVED REPORT FROM JUSTINO CASTELLANO
[2023-01-18] MEDS: PIPERACILLIN /TAZOBACTAM 3.375 G in IV D5W 100 ML IV SCH ×3 (04:27→21:09)
--- NOTE | 2023-01-18 06:40 | NUR ---
RN CLOSING NOTES PATIENT RECEIVED IN BED, AWAKE, A/O X 1. ON NASAL CANULA @ 1LPM SATING AT 97%. BREATHING EVEN AND UNLABORED. AFEBRILE. IV ACCESS ON RITA MIDLINE INTACT AND PATENT.NO S/S OF INFILTRATION. RUNNING NS @60 ML/HR. NO FACIAL GRIMACING NOTED. NO ACUTE DISTRESS. RAMIREZ CATHETER IN PLACE. DRAINING BY GRAVITY. NOTED CLEAR YELLOW URINE. ALL DUE MEDS GIVEN ORDERED. ALL SAFETY PRECAUTION IN PLACE. BED IN LOWEST POSITION AND LOCKED. BED ALARM ON. PLACE CALL LIGHT WITHIN REACH, SIDE RAILS UP X3. WILL ENDORSE TO MORNING SHIFT NURSE.
[2023-01-18] MEDS: ACETYLCYSTEINE 10% SOLN 400 MG/4 ML VIAL NEB SCH ×3 (07:04→23:56)
--- NOTE | 2023-01-18 07:10 | NUR ---
RN OPENING NOTES PATIENT RECEIVED IN BED, AWAKE, A/O X 1. ON NASAL CANULA @ 2LPM SATING AT 95%. RESPIRATORY EVEN AND UNLABORED, NO SOB NOTED, NO S/S DISTRESS, AFEBRILE, NO S/S OF DISTRESS NOTED. NOTED WITH RITA MIDLINE, FLUSHED WITH NS, NO S/S OF INFILTRATION NOTED. RUNNING WITH NS @60 ML/HR. RAMIREZ CATHETER PATENT INTACT DRAINING WITH CLEAR YELLOW URINE OUTPUT. ALL SAFETY PRECAUTION PROVIDED. BED IN LOWEST POSITION, LOCKED. BED ALARM ARMED. CALL LIGHT WITHIN REACH, SIDE RAILS UP X3. WILL CONTINUE TO MONITOR. midline nurse at bedside
--- NOTE | 2023-01-18 08:04 | NUR ---
WOUND CARE: RECEIVED ANOTHER CONSULT FOR RASHES. DEFER TO PMD. PT TREATED WITH ELIMITE CREAM. DISCUSSED WITH ALTERATIONS SEWER. WILL SEE PRN. Addendum: 01/20/23 at 0809 by NORMA LOAIZA WNDNU REGARDING ABOVE NOTE, PT HAD BEEN TREATED WITH ELIMITE CREAM PER NURSING STAFF.
[2023-01-18] MEDS: LEVOTHYROXINE SODIUM 50 MCG TABLET NG SCH (08:18)
[2023-01-18 08:21] LABS: ALBUMIN 2.1 g/dL (3.4-5.0); BILIRUBIN,TOTAL 0.5 mg/dL (0.2-1.0); CALCIUM, SERUM 8.4 mg/dL (8.5-10.1); CREATININE 0.6 mg/dL (0.6-1.3); POTASSIUM 3.7 mmol/L (3.5-5.1); TOTAL PROTEIN, SERUM 5.7 g/dL (6.4-8.2)
[2023-01-18 09:10] LABS: BASOPHILS % (AUTO) 0.4 % (0.0-2.0); EOSINOPHILS % (AUTO) 6.8 % (0.0-6.0); HEMATOCRIT 33 % (33-45); HEMOGLOBIN 11.3 g/dL (11.5-14.8); LYMPHOCYTES % (AUTO) 10.2 % (20.0-44.0); MEAN CORPUSCULAR HGB CONC 34 g/dl (31.0-36.0); MEAN CORPUSCULAR VOLUME 93 fL (82-100); MONOCYTES # (AUTO) 1.2 K/uL (0.1-1.30); MONOCYTES % (AUTO) 11.8 % (2.0-12.0); NEUTROPHILS # (AUTO) 6.9 K/uL (1.8-8.9); NEUTROPHILS % (AUTO) 70.8 % (43.0-81.0); PLATELET COUNT (AUTO) 324 K/uL (150-450); RED BLOOD CELL COUNT(AUTO) 3.59 MIL/uL (4.0-5.2); WHITE BLOOD COUNT (AUTO) 9.8 K/uL (4.3-11.0)
[2023-01-18] MEDS: ESCITALOPRAM OXALATE (10 MG) 10 MG TABLET NG SCH (09:11)
[2023-01-18] MEDS: PANTOPRAZOLE 40 MG/PACK PACK NG SCH (09:12)
[2023-01-18] MEDS: OXCARBAZEPINE 150 MG TABLET NG SCH ×4 (09:12→21:09)
[2023-01-18] MEDS: DIGOXIN INJ 0.5 MG/2 ML AMPUL IV SCH (09:12)
[2023-01-18] MEDS: FUROSEMIDE 20 MG/2 ML VIAL IV SCH ×2 (09:12→16:32)
[2023-01-18] MEDS: risperiDONE LIQUID 1 MG/ML ML NG SCH ×4 (09:19→21:09)
[2023-01-18] MEDS ORDERED: DILTIAZEM HCL 25 MG IV IV SCH (11:30)
[2023-01-18] MEDS ORDERED: DILTIAZEM HCL 50 MG IV IV ONE ×2 (11:30→12:15)
--- NOTE | 2023-01-18 11:33 | NUR ---
RN NOTES: CALLED AND SPOKE TO DR MURILLO PT WAS AFIB WITH RVR EARLIER AND BECAME SINUS TACHYCARDIA AFTER HER ROUTINE DIGOXIN IV, RHYTHM NOW IS A FLUTTER WITH ORDER TO START CARDIZEM DRIP 10 MG BOLUS AND 5 MG/HR DRIP AND TITRATE FOR HR BELOW 100, AND TO TRANSFER TO ICU,CALLED [facility] ROLLING CHAIR PUSHER AND CALLED PHARMACY TO PREPARE MEDS
[2023-01-18] MEDS ORDERED: DILTIAZEM HCL IV 125 MG in IV NS 0.9% 100 ML IV PRN (12:00)
--- NOTE | 2023-01-18 12:00 | NUR ---
RN NOTES: PT TRANSFERRED TO ICU, BEDSIDE REPORT GIVEN TO EDYTA. PT IN ROOM [id number]
--- NOTE | 2023-01-18 12:27 | NUR ---
rn notes: seen by ST around 9 am with order to dc ngt feeding with jevity
[2023-01-18] MEDS: DILTIAZEM HCL IV 125 MG in IV NS 0.9% 100 ML IV PRN (13:00)
[2023-01-18] MEDS: ENOXAPARIN SODIUM 40 MG/0.4 ML DISP.SYRIN SQ SCH (16:31)
[2023-01-18] MEDS: ENSURE ENLIVE CHOC 237 ML CAN PO SCH (16:58)
--- NOTE | 2023-01-18 20:52 | NUR ---
NURSING OFFICER OPENING NOTE PT RECEIVED IN BED, A/O X0, CONFUSED, RESTLESS. PT ON 1L NC WITH CURRENT O2SAT OF 96%; NOTED TO HAVE PRODUCTIVE COUGH WITH NO OTHER S/S OF RESP DISTRESS, NO SOB, NON-LABORED AND EQUAL BREATHING. PT ATTACHED TO BEDSIDE MONITOR, AFIB WITH HR OF 106. PT ON BILATERAL SOFT WRIST RESTRAINTS; NO SIGNS OF IMPAIRED SKIN OR CIRCULATION; WILL PROVIDE PT WITH RELEASE OF RESTRAINTS, FLUIDS, HYGIENE. RITA AND JOVANI MIDLINE INTACT AND PATENT, FLUSHES EASILY WITH NO RESISTANCE; NS INFUSING AT 60 ML/HR AND CARDIZEM AT 10 MG/HR. BED IN LOWEST POSITION, CALL LIGHT WITHIN REACH, SIDE RAILS UP X3. WILL CONTINUE TO MONITOR THROUGHOUT THE NIGHT.
[2023-01-18] MEDS: ATORVASTATIN 10 MG TABLET NG SCH (21:09)
[2023-01-19] VITALS (45 sets, daily range): BP systolic 85–162; BP diastolic 33–80
[2023-01-19] MEDS: IPRATROPIUM NEB FS 0.5 MG/2.5 ML AMPUL.NEB NEB SCH ×4 (01:35→19:57)
[2023-01-19] MEDS: PIPERACILLIN /TAZOBACTAM 3.375 G in IV D5W 100 ML IV SCH ×3 (04:47→20:07)
[2023-01-19 05:00] LABS: BASOPHILS # (AUTO) 0.1 K/uL (0.0-0.2); BASOPHILS % (AUTO) 0.8 % (0.0-2.0); EOSINOPHILS % (AUTO) 8.7 % (0.0-6.0); HEMATOCRIT 32 % (33-45); HEMOGLOBIN 10.8 g/dL (11.5-14.8); LYMPHOCYTES # (AUTO) 1.1 K/uL (0.8-4.8); LYMPHOCYTES % (AUTO) 16.2 % (20.0-44.0); MEAN CORPUSCULAR HGB CONC 34 g/dl (31.0-36.0); MEAN CORPUSCULAR VOLUME 93 fL (82-100); MONOCYTES # (AUTO) 0.9 K/uL (0.1-1.30); MONOCYTES % (AUTO) 12.6 % (2.0-12.0); NEUTROPHILS # (AUTO) 4.2 K/uL (1.8-8.9); NEUTROPHILS % (AUTO) 61.7 % (43.0-81.0); PLATELET COUNT (AUTO) 338 K/uL (150-450); RED BLOOD CELL COUNT(AUTO) 3.45 MIL/uL (4.0-5.2); WHITE BLOOD COUNT (AUTO) 6.9 K/uL (4.3-11.0)
[2023-01-19 05:05] LABS: CALCIUM, SERUM 8.4 mg/dL (8.5-10.1); CARBON DIOXIDE 31 mmol/L (21-32); CHLORIDE 101 mmol/L (98-107); CREATININE 0.6 mg/dL (0.6-1.3); GLUCOSE 102 mg/dL (74-106); POTASSIUM 3.2 mmol/L (3.5-5.1); SODIUM SERUM 137 mmol/L (136-145); UREA NITROGEN, BLOOD 14 mg/dL (7-18)
[2023-01-19 05:12] LABS: ALANINE AMINOTRANSFERASE 18 U/L (12-78); ALBUMIN 2.1 g/dL (3.4-5.0); ALKALINE PHOSPHATASE 56 U/L (46-116); ASPARTATE AMINOTRANSFERASE 19 U/L (15-37); BILIRUBIN,TOTAL 0.4 mg/dL (0.2-1.0); TOTAL PROTEIN, SERUM 5.6 g/dL (6.4-8.2)
[2023-01-19] MEDS ORDERED: DILTIAZEM HCL 25 MG IV ONE (05:32)
[2023-01-19] MEDS: DILTIAZEM HCL IV 125 MG in IV NS 0.9% 100 ML IV PRN (05:35)
--- NOTE | 2023-01-19 06:51 | NUR ---
JALOUSIES INSTALLER CLOSING NOTE PT REMAINS IN BED, SLEPT INTERMITTENTLY THROUGHOUT THE NIGHT; CONFUSED, RESTLESS. O2SAT RANGED FROM 93%-99% WITH PRODUCTIVE COUGH; NO OTHER S/S OF RESP DISTRESS. ATTACHED TO BEDSIDE MONITOR, AFIB WITH HR RANGING FROM 75-128; HR NOTED TO BE IN THE 70S-90S WHEN PT IS ASLEEP BUT INCREASES WHEN AWAKE AND GETS RESTLESS. RAMIREZ INTACT AND PATENT, DRAINING CLEAR AND YELLOW URINE. BILATERAL SOFT WRIST RESTRAINTS REMAIN IN PLACE; NO SIGNS OF IMPAIRED SKIN OR CIRCULATION; PT PROVIDED WITH RELEASE OF RESTRAINTS, FLUIDS, AND [id number]. JOVANI MIDLINE INTACT AND PATENT, FLUSHES EASILY WITH NO RESISTANCE; CARDIZEM AT 5 MG/HR AND NS AT 60 ML/HR. ALL DUE MEDS ADMINISTERED DURING THE NIGHT. BED IN LOWEST POSITION, CALL LIGHT WITHIN REACH, SIDE RAILS UP X3. WILL ENDORSE TO DAYSHIFT NURSE TO CONTINUE CARE.
[2023-01-19] MEDS: ACETYLCYSTEINE 10% SOLN 400 MG/4 ML VIAL NEB SCH ×2 (07:50→14:52)
[2023-01-19] MEDS: ENSURE ENLIVE CHOC 237 ML CAN PO SCH ×2 (07:51→16:19)
--- NOTE | 2023-01-19 07:55 | NUR ---
VENEER TAPER OPENING NOTE RECEIVED PATIENT IN BED SLEEPING, EASILY TO AROUSED, RESPONSIVE WHEN AWAKEN. PT ON 2L NC WITH TOLERATING WELL, NOT IN RESP DISTRESS, NO SOB, NON-LABORED AND EQUAL BREATHING. PT ATTACHED TO BEDSIDE MONITOR, AFIB WITH HR OF 80'S, PT ON BILATERAL SOFT WRIST RESTRAINTS; NO SIGNS OF IMPAIRED SKIN OR CIRCULATION; WILL PROVIDE PT WITH RELEASE OF RESTRAINTS, FLUIDS, HYGIENE. RITA AND JOVANI MIDLINE INTACT AND PATENT, FLUSHES EASILY WITH NO RESISTANCE; NS INFUSING AT 60 ML/HR AND CARDIZEM AT 5 MG/HR. BED IN LOWEST POSITION, CALL LIGHT WITHIN REACH, SIDE RAILS UP X3. PLAN OF CARE CONTINUE.
[2023-01-19] MEDS: risperiDONE LIQUID 1 MG/ML ML NG SCH ×4 (08:26→20:07)
[2023-01-19] MEDS: PANTOPRAZOLE 40 MG/PACK PACK NG SCH (08:27)
[2023-01-19] MEDS: DIGOXIN INJ 0.5 MG/2 ML AMPUL IV SCH (08:27)
[2023-01-19] MEDS: FUROSEMIDE 20 MG/2 ML VIAL IV SCH (08:27)
[2023-01-19] MEDS: OXCARBAZEPINE 150 MG TABLET NG SCH ×4 (08:27→20:09)
[2023-01-19] MEDS: LEVOTHYROXINE SODIUM 50 MCG TABLET NG SCH (08:27)
[2023-01-19] MEDS: ESCITALOPRAM OXALATE (10 MG) 10 MG TABLET NG SCH (08:35)
[2023-01-19] MEDS: IV NS 0.9% 1,000 ML IV SCH (11:06)
[2023-01-19] MEDS: POTASSIUM CHLORIDE 20 MEQ TAB.PRT.SR PO SCH ×3 (11:12→12:02)
[2023-01-19] MEDS: DIGOXIN 0.25 MG TABLET PO SCH (12:31)
--- NOTE | 2023-01-19 16:11 | NUR ---
RECEIVED A CALL FROM SURJITJAVED GONZALEZ, PATIENT'S SON, PER SURJIT GONZALEZ [phone], HE IS THE PATIENT'S DPOA AND HE DOESN'T WANT HIS SISTER JESSE COME VISITING THE PATIENT OR GIVE ANY UPDATE REGARDING THE PATIENT. PER SURJIT HE WILL FAX THE DPOA PAPER [facility]. FAX NO, TRIED CALLING TEAMCENTER SOLUTION ARCHITECT TO UPDATE ABOUT THE SITUATION, NO ANSWER, CHARGE NURSE EDYTA INFORMED.
[2023-01-19] MEDS: ENOXAPARIN SODIUM 40 MG/0.4 ML DISP.SYRIN SQ SCH (16:20)
[2023-01-19] MEDS: ACETAMINOPHEN 325 MG TABLET PO PRN (16:23)
--- NOTE | 2023-01-19 18:00 | NUR ---
METAL LATHER NOTE PATIENT IN BED SLEEPING, EASILY TO AROUSED, RESPONSIVE WHEN AWAKEN. PT ON 1L NC WITH TOLERATING WELL, NOT IN RESP DISTRESS, NO SOB, NON-LABORED AND EQUAL BREATHING. PT ATTACHED TO BEDSIDE MONITOR, UNCONTROLLED AFIB WITH HR OF 80'S, PT ON BILATERAL SOFT WRIST RESTRAINTS; NO SIGNS OF IMPAIRED SKIN OR CIRCULATION; W RITA AND JOVANI MIDLINE INTACT AND PATENT, FLUSHES EASILY WITH NO RESISTANCE; NS INFUSING AT 60 ML/HR. BED IN LOWEST POSITION, CALL LIGHT WITHIN REACH, SIDE RAILS UP X3. WILL TRANSFER TO [facility] ROOM 105.
--- NOTE | 2023-01-19 18:05 | NUR ---
TRANSFERRED PATIENT VIA ACLS PROTOCOL TO ROOM 105, GAVE REPORT TO VAISHNAVI BADILLO. Addendum: 01/19/23 at 1834 by DOMI NDIAYE RN [facility]
--- NOTE | 2023-01-19 18:10 | NUR ---
PATIENT RECEIVED FROM ICU. REPORT TAKEN AT BEDSIDE.
--- NOTE | 2023-01-19 19:30 | NUR ---
DIAMOND EXPERT OPENING NOTES RECEIVED PATIENT AWAKE IN BED. PATIENT IS A/O TIMES 0 WITH CONFUSION. NO PAIN NOTED. NO SOB NOTED. NO DISTRESS NOTED. ON TELE MONITOR READING CONTROLLED AFIB , HR NOTED 78. NOTED PATIENT IS SCRATCHING HARDLY HER UPPER BODY . AND RESTLESS. MOVING IN HER BED TO SCRATCH HER BACK. PATIENT WAS REMOVING HER TELE LEADS. PATIENT IS ON BILATERAL SOFT WRIST RESTRAINS. FIXED LENGTH OF THE RESTRAINS . CHECKED FOR CIRCULATION AND SKIN . FIXED THE LEADS. APPLIES SOME ZGUARD FOR COMFORT. GAVE PRN BENADRYL ORDERED FOR ITCHING AT 1940 FOR EXCESSIVE ITCHING. ALL NEEDS ATTENDED. PATIENT HAS RITA AND JOVANI MIDLINES. INTACT AND FLUSHING WELL. ON CONTINUOUS HYDRATION OF NS AT 6O ML /HR. NOT SURE IF PATIENT IS ON SCABIES ISOLATION. PER PREVIOUS SHIFT NURSE VAISHNAVI , PATIENT IS NO MORE ON ISOLATION. WILL ORDER WOUND CARE FOR CLARIFICATION. WILL KEEP CONTACT ISOLATION PRECAUTION TILL CLARIFICATION OF SCABIES. PATIENT IS ON RAMIREZ CATHETER. RAMIREZ CATHETER IS INTACT AND DRAINING YELLOW COLOR URINE BY GRAVITY. ALL SAFETY MEASURES IN PLACE. BED LOCKED IN THE LOWEST POSITION. CALL LIGHT AND TABLE IN EASY REACH. SIDE RAILS UP TIMES 2. HEAD OF THE BED ELEVATED FOR ASPIRATION PRECAUTION. WILL CONTINUE TO MONITOR CLOSELY.
[2023-01-19] MEDS: diphenhydrAMINE HCL 50 MG/ML VIAL IV PRN (19:40)
--- NOTE | 2023-01-19 20:16 | NUR ---
PSYCHOLOGIST MILITARY PERSONNEL CLOSING NOTE PATIENT IN BED RESTING. ALERT AND ORIENTED X0-1. PT ON 1L NC TOLERATING WELL WITH NO S/S OF RESP DISTRESS OR SOB. BREATHING EVEN AND UNLABORED. ON TELE MONITOR READING AFIB WITH HR OF 80'S. ON BILATERAL SOFT WRIST RESTRAINTS WITH NO SIGNS OF IMPAIRED SKIN OR CIRCULATION. RITA AND JOVANI MIDLINE INTACT AND PATENT, FLUSHES EASILY WITH NO RESISTANCE. SAFETY MEASURES IN PLACE WITH BED IN LOWEST POSITION, CALL LIGHT WITHIN REACH, SIDE RAILS UP X3. WILL ENDORSE TO ONCOMING SHIFT FOR GUILLAUME.
[2023-01-19] MEDS: ATORVASTATIN 10 MG TABLET NG SCH (21:28)
[2023-01-20] VITALS: BP 147/66
[2023-01-20] MEDS: ACETYLCYSTEINE 10% SOLN 400 MG/4 ML VIAL NEB SCH ×4 (00:27→23:39)
[2023-01-20] MEDS: IPRATROPIUM NEB FS 0.5 MG/2.5 ML AMPUL.NEB NEB SCH ×4 (02:09→19:35)
[2023-01-20 04:00] VITALS: BP 150/92
[2023-01-20] MEDS: IV NS 0.9% 1,000 ML IV SCH (04:01)
[2023-01-20] MEDS: PIPERACILLIN /TAZOBACTAM 3.375 G in IV D5W 100 ML IV SCH ×3 (04:12→21:33)
--- NOTE | 2023-01-20 06:46 | NUR ---
AFTERNOON NANNY CLOSING NOTES PATIENT AWAKE IN BED. PATIENT IS A/O TIMES 0 WITH CONFUSION. NO PAIN NOTED. NO SOB NOTED. NO DISTRESS NOTED. ON TELE MONITOR READING SR , HR NOTED 73. ALL NEEDS ATTENDED. PATIENT HAS RITA AND JOVANI MIDLINES. INTACT AND FLUSHING WELL. ON CONTINUOUS HYDRATION OF NS AT 6O ML /HR. NOT SURE IF PATIENT IS ON SCABIES ISOLATION. PER PREVIOUS SHIFT NURSE VAISHNAVI , PATIENT IS NO MORE ON ISOLATION. WILL ORDER WOUND CARE FOR CLARIFICATION. WILL KEEP CONTACT ISOLATION PRECAUTION TILL CLARIFICATION OF SCABIES. PATIENT IS ON RAMIREZ CATHETER. RAMIREZ CATHETER IS INTACT AND DRAINING YELLOW COLOR URINE BY GRAVITY.URINE OUTPUT NOTED 600 ML.ALL DUE MEDS GIVEN ORDERED. ALL SAFETY MEASURES IN PLACE. BED LOCKED IN THE LOWEST POSITION. CALL LIGHT AND TABLE IN EASY REACH. SIDE RAILS UP TIMES 2. HEAD OF THE BED ELEVATED FOR ASPIRATION PRECAUTION. WILL ENDORSE FOR GUILLAUME.
[2023-01-20] MEDS: LEVOTHYROXINE SODIUM 50 MCG TABLET NG SCH (07:12)
--- NOTE | 2023-01-20 07:15 | NUR ---
OPERATION MANAGER OPEN NOTES PATIENT AWAKE IN BED. PATIENT IS A/O TIMES 0 WITH CONFUSION. NO PAIN NOTED. NO SOB NOTED. NO DISTRESS NOTED. ON TELE MONITOR READING SR , HR NOTED 78. PATIENT HAS RITA AND JOVANI MIDLINES. INTACT AND FLUSHING WELL. ON CONTINUOUS HYDRATION OF NS AT 6O ML /HR. PATIENT HAS RAMIREZ CATHETER. RAMIREZ CATHETER IS INTACT AND DRAINING YELLOW COLOR URINE BY GRAVITY.PATIENT IS ON PURE DIET , SPEECH EVAL IS SCHEDULED FOR TODAY ALL SAFETY MEASURES IN PLACE. BED LOCKED IN THE LOWEST POSITION. CALL LIGHT AND TABLE IN EASY REACH. SIDE RAILS UP TIMES 2. HEAD OF THE BED ELEVATED FOR ASPIRATION PRECAUTION. WILL CONTINUE TO MONITOR.
[2023-01-20 08:00] VITALS: BP 160/67
--- NOTE | 2023-01-20 08:09 | NUR ---
WOUND CARE CONSULT: PT SCRATCHING HER SKIN. DEFER TO PMD FOR GENERALIZED SKIN CONDITION. DISCUSSED WITH NURSING STAFF AND CANE PILER.
[2023-01-20] MEDS: ESCITALOPRAM OXALATE (10 MG) 10 MG TABLET NG SCH (08:55)
[2023-01-20] MEDS: risperiDONE LIQUID 1 MG/ML ML NG SCH ×4 (08:55→21:34)
[2023-01-20] MEDS: OXCARBAZEPINE 150 MG TABLET NG SCH ×4 (08:56→21:35)
[2023-01-20] MEDS: PANTOPRAZOLE 40 MG/PACK PACK NG SCH (08:56)
[2023-01-20] MEDS: ENSURE ENLIVE CHOC 237 ML CAN PO SCH ×2 (08:57→16:22)
[2023-01-20] MEDS: VALSARTAN 80 MG TABLET PO SCH (10:16)
--- NOTE | 2023-01-20 10:38 | NUR ---
RN NOTE SECOND DOSE OF LOVENOX 60 ML SCHEDULED FOR 10 AM , PATIENT IS SCHEDULED FOR CT ANGIO, CONFIRMEN WITH THE DR LYNCH , ORDER RECEIVED TO ADMINISTER 20 MG INSTEAD OF 60 MG
[2023-01-20] MEDS ORDERED: PERMETHRIN 5% CRM 60 GM TUBE TP ONE (11:00)
[2023-01-20 12:00] VITALS: BP 136/56
[2023-01-20] MEDS: DIGOXIN 0.25 MG TABLET PO SCH (12:31)
[2023-01-20] MEDS: diphenhydrAMINE HCL 50 MG/ML VIAL IV PRN (14:18)
[2023-01-20 14:23] LABS: BASOPHILS # (AUTO) 0.2 K/uL (0.0-0.2); BASOPHILS % (AUTO) 3.2 % (0.0-2.0); EOSINOPHILS % (AUTO) 8.5 % (0.0-6.0); HEMATOCRIT 33 % (33-45); HEMOGLOBIN 10.7 g/dL (11.5-14.8); LYMPHOCYTES # (AUTO) 0.8 K/uL (0.8-4.8); MEAN CORPUSCULAR HGB CONC 33 g/dl (31.0-36.0); MEAN CORPUSCULAR VOLUME 95 fL (82-100); MONOCYTES # (AUTO) 0.6 K/uL (0.1-1.30); MONOCYTES % (AUTO) 8.2 % (2.0-12.0); NEUTROPHILS # (AUTO) 4.6 K/uL (1.8-8.9); NEUTROPHILS % (AUTO) 68.1 % (43.0-81.0); PLATELET COUNT (AUTO) 325 K/uL (150-450); RED BLOOD CELL COUNT(AUTO) 3.48 MIL/uL (4.0-5.2); WHITE BLOOD COUNT (AUTO) 6.7 K/uL (4.3-11.0)
[2023-01-20 14:39] LABS: ALANINE AMINOTRANSFERASE 14 U/L (12-78); ALBUMIN 2.3 g/dL (3.4-5.0); ALKALINE PHOSPHATASE 63 U/L (46-116); ASPARTATE AMINOTRANSFERASE 23 U/L (15-37); BILIRUBIN,TOTAL 0.4 mg/dL (0.2-1.0); CALCIUM, SERUM 8.4 mg/dL (8.5-10.1); CARBON DIOXIDE 26 mmol/L (21-32); CHLORIDE 100 mmol/L (98-107); CREATININE 0.5 mg/dL (0.6-1.3); GLUCOSE 114 mg/dL (74-106); POTASSIUM 3.1 mmol/L (3.5-5.1); SODIUM SERUM 130 mmol/L (136-145); TOTAL PROTEIN, SERUM 5.8 g/dL (6.4-8.2); UREA NITROGEN, BLOOD 14 mg/dL (7-18)
[2023-01-20 16:00] VITALS: BP 138/55
[2023-01-20] MEDS: ENOXAPARIN SODIUM 40 MG/0.4 ML DISP.SYRIN SQ SCH (16:18)
[2023-01-20] MEDS ORDERED: POTASSIUM CHLORIDE 20 MEQ TAB.PRT.SR PO SCH (18:00)
--- NOTE | 2023-01-20 18:23 | NUR ---
RN CLOSING NOTE PATIENT IN BED SLEEPING AFTER THE BENEDRIL ADMINISTRATION R/T ITCHING . PATIENT IS A/O TIMES 1 WITH CONFUSION. NO PAIN NOTED. NO SOB NOTED. NO DISTRESS NOTED. ON TELE MONITOR READING SR , HR NOTED 79. ALL NEEDS ATTENDED. PATIENT HAS RITA AND JOVANI MIDLINES. INTACT AND FLUSHING WELL. ON CONTINUOUS HYDRATION OF NS AT 6O ML /HR. . WILL KEEP CONTACT ISOLATION PRECAUTION TILL CLARIFICATION OF SCABIES. PATIENT IS ON RAMIREZ CATHETER. RAMIREZ CATHETER IS INTACT AND DRAINING YELLOW COLOR URINE BY GRAVITY.URINE OUTPUT NOTED 550 ML.ALL DUE MEDS GIVEN ORDERED. ALL SAFETY MEASURES IN PLACE. BED LOCKED IN THE LOWEST POSITION. CALL LIGHT AND TABLE WITHIN REACH. SIDE RAILS UP TIMES 2. HEAD OF THE BED ELEVATED FOR ASPIRATION PRECAUTION. WILL ENDORSE LINING SEWER NURSE FOR GUILLAUME.
--- NOTE | 2023-01-20 19:10 | NUR ---
RN OPENING NOTE RECEIVED PATIENT IN BED, ASLEEP, BUT AROUSABLE TO NAME. AAO X1, CONFUSED. ON ROOM AIR WITH O2 SAT OF 99%. NO SOB/DISTRESS NOTED. ON TELE MONITOR READING SR WITH HR 79. IV ACCESS ON RITA AND JOVANI MIDLINE, INTACT AND FLUSHING WELL. NS RUNNING AT 60 ML/HR. RAMIREZ CATHETER NOTED, INTACT AND DRAINING CLEAR YELLOW URINE. SAFETY MEASURES IN PLACE: BED LOCKED AND IN THE LOWEST POSITION, CALL LIGHT WITHIN REACH, SIDE RAILS UP X3.
[2023-01-20 20:00] VITALS: BP 99/59
[2023-01-20] MEDS: ATORVASTATIN 10 MG TABLET NG SCH (21:34)
[2023-01-21] VITALS: BP 106/64
[2023-01-21] MEDS: IPRATROPIUM NEB FS 0.5 MG/2.5 ML AMPUL.NEB NEB SCH ×5 (01:18→23:47)
[2023-01-21 04:00] VITALS: BP 142/56
[2023-01-21] MEDS: PIPERACILLIN /TAZOBACTAM 3.375 G in IV D5W 100 ML IV SCH (05:18)
--- NOTE | 2023-01-21 05:51 | NUR ---
ATTEMPTED DOING ABG, PT IS COMBATIVE AND REFUSED . RN OTIS AND CHARGE NURSE LEANNE AWARE. SPO2 98% @ ROOM AIR
--- NOTE | 2023-01-21 05:55 | NUR ---
RN NOTE PATIENT WAS COMBATIVE TOWARD RT AND REFUSED ABG
[2023-01-21 06:51] LABS: BASOPHILS # (AUTO) 0.1 K/uL (0.0-0.2); BASOPHILS % (AUTO) 1.2 % (0.0-2.0); EOSINOPHILS % (AUTO) 8.8 % (0.0-6.0); HEMATOCRIT 33 % (33-45); LYMPHOCYTES # (AUTO) 1.4 K/uL (0.8-4.8); LYMPHOCYTES % (AUTO) 20.1 % (20.0-44.0); MEAN CORPUSCULAR HGB CONC 33 g/dl (31.0-36.0); MEAN CORPUSCULAR VOLUME 94 fL (82-100); MONOCYTES # (AUTO) 0.7 K/uL (0.1-1.30); MONOCYTES % (AUTO) 10.3 % (2.0-12.0); NEUTROPHILS # (AUTO) 4.1 K/uL (1.8-8.9); NEUTROPHILS % (AUTO) 59.6 % (43.0-81.0); PLATELET COUNT (AUTO) 382 K/uL (150-450); RED BLOOD CELL COUNT(AUTO) 3.52 MIL/uL (4.0-5.2); WHITE BLOOD COUNT (AUTO) 6.8 K/uL (4.3-11.0)
--- NOTE | 2023-01-21 06:53 | NUR ---
RN CLOSING NOTE PATIENT IN BED, ASLEEP, BUT AROUSABLE TO NAME. AAO X1, CONFUSED. ON ROOM AIR WITH O2 SAT OF 98%. NO SOB/DISTRESS NOTED. ON TELE MONITOR READING SR WITH HR 73. IV ACCESS ON RITA AND JOVANI MIDLINE, INTACT AND FLUSHING WELL. RAMIREZ CATHETER NOTED, INTACT AND DRAINING CLEAR YELLOW URINE. SAFETY MEASURES MAINTAINED: BED LOCKED AND IN THE LOWEST POSITION, CALL LIGHT WITHIN REACH, SIDE RAILS UP X3, BED ALARM ON.
[2023-01-21 07:08] LABS: ALANINE AMINOTRANSFERASE 14 U/L (12-78); ALBUMIN 2.4 g/dL (3.4-5.0); ALKALINE PHOSPHATASE 62 U/L (46-116); ASPARTATE AMINOTRANSFERASE 18 U/L (15-37); BILIRUBIN,TOTAL 0.4 mg/dL (0.2-1.0); CALCIUM, SERUM 8.6 mg/dL (8.5-10.1); CARBON DIOXIDE 27 mmol/L (21-32); CHLORIDE 102 mmol/L (98-107); CREATININE 0.6 mg/dL (0.6-1.3); GLUCOSE 106 mg/dL (74-106); MAGNESIUM 1.9 mg/dL (1.8-2.4); PHOSPHORUS 3.2 mg/dL (2.5-4.9); POTASSIUM 2.9 mmol/L (3.5-5.1); SODIUM SERUM 137 mmol/L (136-145); TOTAL PROTEIN, SERUM 5.9 g/dL (6.4-8.2); UREA NITROGEN, BLOOD 14 mg/dL (7-18)
--- NOTE | 2023-01-21 07:15 | NUR ---
ORTHOPEDIC PHYSICAL THERAPIST OPEN NOTE: ALERT TO NAME, REORIENTED TO TIME PLACE AND SITUATION. ON RA SATING AT 96%. LEFT AND RIGHT UPPER ARM MIDLINE PATENT. NO S/S OF COMPLICATIONS. SENIOR MILITARY ANALYST A.FLUTTER 111. RAMIREZ CATHETER IN PLACE WITH YELLOW URINE. . ASPIRATION PRECAUTIONS MAINTAINED. BILATERAL HALF SIDE RAILS X2. BED IN LOW POSITION, LOCKED, EXIT ALARM ON. CALL LIGHT IN REACH. SAFETY PRECAUTIONS MAINTAINED.
[2023-01-21] MEDS: ACETYLCYSTEINE 10% SOLN 400 MG/4 ML VIAL NEB SCH ×3 (07:51→23:47)
[2023-01-21 08:00] VITALS: BP 129/80
[2023-01-21] MEDS: LEVOTHYROXINE SODIUM 50 MCG TABLET NG SCH (08:30)
[2023-01-21] MEDS ORDERED: ESCI10TA NG (08:40)
[2023-01-21] MEDS ORDERED: Digoxin PO (08:40)
[2023-01-21] MEDS ORDERED: VALS80TA31 PO (08:42)
[2023-01-21] MEDS: OXCARBAZEPINE 150 MG TABLET NG SCH ×4 (08:57→21:36)
[2023-01-21] MEDS: POTASSIUM CHLORIDE 20 MEQ TAB.PRT.SR PO SCH (08:57)
[2023-01-21] MEDS: PANTOPRAZOLE 40 MG/PACK PACK NG SCH (08:57)
[2023-01-21] MEDS: ESCITALOPRAM OXALATE (10 MG) 10 MG TABLET NG SCH (08:58)
[2023-01-21] MEDS: VALSARTAN 80 MG TABLET PO SCH (08:58)
[2023-01-21] MEDS: ACETAMINOPHEN 325 MG TABLET PO PRN ×2 (08:59→17:49)
[2023-01-21] MEDS: risperiDONE LIQUID 1 MG/ML ML NG SCH ×4 (09:03→21:35)
[2023-01-21] MEDS: DILTIAZEM HCL CD 240 MG PO SCH (09:25)
[2023-01-21] MEDS: ENSURE ENLIVE CHOC 237 ML CAN PO SCH ×2 (09:25→17:51)
--- NOTE | 2023-01-21 09:25 | NUR ---
CARDIZEM GIVEN ORDERED FOR A.FIB [id number] PER DOCTOR MAUDE.
[2023-01-21 12:00] VITALS: BP 103/40
[2023-01-21] MEDS: DIGOXIN 0.25 MG TABLET PO SCH (12:55)
[2023-01-21] MEDS: diphenhydrAMINE HCL 50 MG/ML VIAL IV PRN ×2 (14:54→22:26)
[2023-01-21 16:00] VITALS: BP 98/47
[2023-01-21] MEDS: ENOXAPARIN SODIUM 40 MG/0.4 ML DISP.SYRIN SQ SCH (17:55)
--- NOTE | 2023-01-21 18:13 | NUR ---
OFFSET PLATE PREPARATION SUPERVISOR CLOSING NOTE: ALERT TO NAME, REORIENTED TO TIME PLACE AND SITUATION. ON RA SATING AT 100%. LEFT AND RIGHT UPPER ARM MIDLINE PATENT. NO S/S OF COMPLICATIONS. STAKE DRIVER SINUS RHYTHM 69. RAMIREZ CATHETER IN PLACE WITH YELLOW URINE. CONTINUES WITH GENERALIZED RASH C/O ITCHING AND IV BENADRYL GIVEN ORDERED HOB ELEVATED. ASPIRATION PRECAUTIONS MAINTAINED. BILATERAL HALF SIDE RAILS X2. BED IN LOW POSITION, LOCKED, EXIT ALARM ON. CALL LIGHT IN REACH. ON PAIN MANAGEMENT WITH PRN TYLENOL AND EFFECTIVE.
--- NOTE | 2023-01-21 18:29 | NUR ---
1653: PATIENT CONVERTED TO SINUS RHYTHM 95.
--- NOTE | 2023-01-21 19:00 | NUR ---
RN NOTE RECEIVED PT IN BED, AAO X 1, SATURATION AT 96% ON ROOM AIR, SR ON THE MONITOR, HR IS 78. JOVANI MIDLINE PATENT AND FLUSHING WELL, NS AT TKO. RAMIREZ CATH DRAINING TO A CLEAR, YELLOW OUTPUT. GENERALIZED RASHES NOTED. SAFETY MEASURES IN PLACE, BED IS LOCKED AND AT LOWEST POSITION, CALL LIGHT WITHIN REACH OF PATIENT. WILL CONT TO MONITOR AND REASSESS.
[2023-01-21 19:21] LABS: POTASSIUM 4.2 mmol/L (3.5-5.1)
[2023-01-21 20:00] VITALS: BP 101/26
[2023-01-21] MEDS: ATORVASTATIN 10 MG TABLET NG SCH (21:36)
[2023-01-22] VITALS: BP 124/39
[2023-01-22 04:00] VITALS: BP 128/51
[2023-01-22 07:19] LABS: BASOPHILS # (AUTO) 0.1 K/uL (0.0-0.2); BASOPHILS % (AUTO) 0.7 % (0.0-2.0); EOSINOPHILS % (AUTO) 7.2 % (0.0-6.0); HEMATOCRIT 33 % (33-45); HEMOGLOBIN 11.1 g/dL (11.5-14.8); LYMPHOCYTES # (AUTO) 1.7 K/uL (0.8-4.8); LYMPHOCYTES % (AUTO) 17.6 % (20.0-44.0); MEAN CORPUSCULAR HGB CONC 34 g/dl (31.0-36.0); MEAN CORPUSCULAR VOLUME 92 fL (82-100); MONOCYTES # (AUTO) 0.9 K/uL (0.1-1.30); MONOCYTES % (AUTO) 9.2 % (2.0-12.0); NEUTROPHILS # (AUTO) 6.2 K/uL (1.8-8.9); NEUTROPHILS % (AUTO) 65.3 % (43.0-81.0); PLATELET COUNT (AUTO) 408 K/uL (150-450); RED BLOOD CELL COUNT(AUTO) 3.58 MIL/uL (4.0-5.2); WHITE BLOOD COUNT (AUTO) 9.4 K/uL (4.3-11.0)
[2023-01-22 07:29] LABS: CARBON DIOXIDE 29 mmol/L (21-32); CHLORIDE 105 mmol/L (98-107); CREATININE 0.8 mg/dL (0.6-1.3); GLUCOSE 127 mg/dL (74-106); POTASSIUM 3.4 mmol/L (3.5-5.1); SODIUM SERUM 140 mmol/L (136-145); UREA NITROGEN, BLOOD 26 mg/dL (7-18)
[2023-01-22 07:37] LABS: ALANINE AMINOTRANSFERASE 21 U/L (12-78); ALBUMIN 2.6 g/dL (3.4-5.0); ALKALINE PHOSPHATASE 66 U/L (46-116); ASPARTATE AMINOTRANSFERASE 21 U/L (15-37); BILIRUBIN,TOTAL 0.3 mg/dL (0.2-1.0); TOTAL PROTEIN, SERUM 6.2 g/dL (6.4-8.2)
[2023-01-22] MEDS: IPRATROPIUM NEB FS 0.5 MG/2.5 ML AMPUL.NEB NEB SCH ×2 (07:43→14:32)
[2023-01-22] MEDS: ACETYLCYSTEINE 10% SOLN 400 MG/4 ML VIAL NEB SCH ×2 (07:43→14:32)
[2023-01-22 08:00] VITALS: BP 145/56
--- NOTE | 2023-01-22 08:20 | NUR ---
RN NOTES; RECEIVED REPORT FROM ML BADILLO, PT IN BED ASLEEP BUT EASILY AROUSABLE,ALERT AND ORIENTED X 1 WITH CONFUSION RESPIRATION IS EVEN AND UNLABORED,NO SOB NOTED, NO PAIN NOTED. ON TELE MONITOR READING SR , HR NOTED 78. PATIENT HAS JOVANI MIDLINES. INTACT AND FLUSHING WELL. PATIENT HAS RAMIREZ CATHETER. RAMIREZ CATHETER IS INTACT AND DRAINING YELLOW COLOR URINE BY GRAVITY.PATIENT IS ON PURE DIET , ALL SAFETY MEASURES IN PLACE. BED LOCKED IN THE LOWEST POSITION. CALL LIGHT AND TABLE IN EASY REACH. SIDE RAILS UP TIMES 2. HEAD OF THE BED ELEVATED FOR ASPIRATION PRECAUTION. WILL CONTINUE TO MONITOR.
[2023-01-22] MEDS: LEVOTHYROXINE SODIUM 50 MCG TABLET NG SCH (08:29)
[2023-01-22] MEDS: ENSURE ENLIVE CHOC 237 ML CAN PO SCH (08:29)
[2023-01-22] MEDS: PANTOPRAZOLE 40 MG/PACK PACK NG SCH (08:36)
[2023-01-22] MEDS: ESCITALOPRAM OXALATE (10 MG) 10 MG TABLET NG SCH (08:36)
[2023-01-22] MEDS: VALSARTAN 80 MG TABLET PO SCH (08:39)
[2023-01-22] MEDS: POTASSIUM CHLORIDE 20 MEQ TAB.PRT.SR PO SCH (08:40)
[2023-01-22] MEDS: OXCARBAZEPINE 150 MG TABLET NG SCH ×2 (08:40→12:16)
[2023-01-22] MEDS: risperiDONE LIQUID 1 MG/ML ML NG SCH ×2 (08:46→12:17)
[2023-01-22] MEDS: DILTIAZEM HCL CD 240 MG PO SCH (08:48)
[2023-01-22 12:00] VITALS: BP 125/55
[2023-01-22] MEDS ORDERED: DILT240C88 PO (12:05)
[2023-01-22] MEDS: DIGOXIN 0.25 MG TABLET PO SCH (12:16)
[2023-01-22] MEDS: diphenhydrAMINE HCL 50 MG/ML VIAL IV PRN (15:27)
[2023-01-22] MEDS: LORAZEPAM 1 MG TABLET NG PRN (15:37)
[2023-01-22] MEDS: ACETAMINOPHEN 325 MG TABLET PO PRN (15:37)
[2023-01-22 16:00] VITALS: BP 126/50
--- NOTE | 2023-01-22 16:45 | NUR ---
BIAS CUTTING MACHINE OPERATOR NOTE PATIENT IS READY FOR DISCHARGE,NO SOB NOTED, RIGHT UPPER ARM MIDLINE REMOVED , NO BLEEDING NOTED, BODY CHECK WITH GENERALIZED BODY RASH, RAMIREZ CATH INTACT PATENT DRAINING YELLOW CLEAR URINE.CALLED [facility] AND GAVE REPORT TO SEBASTIEN BADILLO,LEFT VIA [facility] IN STABLE CONDITION,LEFT MESSAGE TO SON SURJIT TO NOTIFY HIM
== END 2023-01-22 16:45 | DRG 208 ==
LOC: ER 13:30 → ICU 14:44 → TELE-TD 01-15 12:53 → ICU 01-18 11:46 → TELE1 01-19 18:10
PROVIDERS: ADMIT Registered Nurse; ATTEND Internal Medicine
PROC: 5A1935Z Respiratory Ventilation, Less than 24 Consecutive Hours (ICD-10-PCS; principal; 2023-01-11)
PROC: 0BH17EZ Insertion of Endotracheal Airway into Trachea, Via Natural or Artificial Opening (ICD-10-PCS; 2023-01-11)
PROC: 05HC33Z Insertion of Infusion Device into Left Basilic Vein, Percutaneous Approach (ICD-10-PCS; 2023-01-13)
PROC: 5A09357 Assistance with Respiratory Ventilation, Less than 24 Consecutive Hours, Continuous Positive Airway Pressure (ICD-10-PCS; 2023-01-15)
PROC: 05HB33Z Insertion of Infusion Device into Right Basilic Vein, Percutaneous Approach (ICD-10-PCS; 2023-01-18)
DX: T17.928A Food in respiratory tract, part unspecified causing other injury, initial encounter (principal); J69.0 Pneumonitis due to inhalation of food and vomit; J96.01 Acute respiratory failure with hypoxia; R65.21 Severe sepsis with septic shock; R57.1 Hypovolemic shock; A41.9 Sepsis, unspecified organism; F03.94 Unspecified dementia, unspecified severity, with anxiety; E87.20 Acidosis, unspecified; E87.1 Hypo-osmolality and hyponatremia; I47.1 Supraventricular tachycardia; X58.XXXA Exposure to other specified factors, initial encounter; Y92.049 Unspecified place in boarding-house as the place of occurrence of the external cause; Z20.822 Contact with and (suspected) exposure to COVID-19; E87.6 Hypokalemia; F41.9 Anxiety disorder, unspecified; Z90.710 Acquired absence of both cervix and uterus; Z87.19 Personal history of other diseases of the digestive system; Z79.899 Other long term (current) drug therapy; I95.2 Hypotension due to drugs; T41.295A Adverse effect of other general anesthetics, initial encounter; Y92.89 Other specified places as the place of occurrence of the external cause; I70.0 Atherosclerosis of aorta; R13.10 Dysphagia, unspecified; B86 Scabies; I48.0 Paroxysmal atrial fibrillation; Z78.1 Physical restraint status
CPT/HCPCS: 31720; 36410; 36415; 36600; 71045-TC; 80048-TC; 80053-TC; 80061-TC; 80076-TC; 81001; 82803-TC; 83605-TC; 83735-TC; 84100-TC; 84132-TC; 84295-TC; 84443-TC; 84484-TC; 85025-TC; 85730-TC; 87040-TC; 87081-TC; 87086-TC; 92526; 92611-TC; 93307-TC; 94002-TC; 94003-TC; 94640-TC; 94799-TC; 97112-TC; 97116-TC; 97530-TC; A4216; A4223; C9113; G0378; J0282; J0330; J0360; J1160; J1200; J1650; J1940; J2543; J3475; J3480; J3490; J7030; J7050; J7060